=== PATIENT | male | born 1950 | race Caucasian/White ===

== ENCOUNTER 2016-06-25 19:32 | Inpatient (IN) | payer OTHER ==
[~2016-06-25] VITALS: Ht 170.2 cm; Wt 79.0 kg
[~2016-06-25 19:32] MED LIST: BISAC-EVAC10 MG PR; CHOLESTYRAMINE P4 GM PO; CLONIDINE HCL0.1 MG PO; DUONEB 2.5-0.5 M3 ML AEROSOL; ESKALITH300 M1 PO; FENOFIBRATE200 M1 PO; FLORA-Q CAPSUL1 EACH PO; HALDOL DEC100 MG/1 M IM; HALDOL DECON50 MG/ML IM; HALDOL5 MG IM; HALDOL5 MG PO; K-DUR20 MEQ PO; LISINOPRIL10 MG PO; LISINOPRIL20 MG PO; LO-DOSE ASPIRIN81 M1 PO; LOPERAMIDE2 MG PO; METOPROLOL SUC100 MG PO; ONDANSETRON4 MG/2 ML IV; PANTOPRAZOLE SO40 MG PO; SEROQUEL100 MG PO; SIMVASTATIN40 MG PO; TAMSULOSIN HCL0.4 MG PO; TYLENOL REGULA325 MG PO; ZESTRIL,PRINIVI10 M1 PO; Zestril,Prinivil PO
[2016-06-25 20:10] LABS: HEMATOCRIT 38.9 % (38.0-50.0); MCH 28.7 PG (29.0-34.0); MCHC 33.2 G/DL (30.0-36.0); MCV 86.6 FL (86-99); MEAN PLAT.VOLUME 9.5 uM^3 (9.0-12.4); PLATELET COUNT 398 K/uL (156-360); RBC DIS.WIDTH-SD 43.1 % (39-53); RED BLOOD COUNT 4.49 M/uL (4.00-5.50)
[2016-06-25 20:20] LABS: CHLORIDE 105 mEq/L (99-109); POTASSIUM 3.8 mEq/L (3.7-5.4); SODIUM 139 mEq/L (136-147)
[2016-06-25 20:22] LABS: GLUCOSE 102 mg/dL (70-99)
[2016-06-25 20:23] LABS: ANION GAP 9 MEQ/L (2-14)
[2016-06-25 20:26] LABS: GFR ESTIMATE (CALCULATED) > 59 mL/min/
[2016-06-25 20:27] LABS: UREA NITROGEN (BUN) 13 mg/dL (9-23)
[2016-06-25 22:12] LABS: TOTAL BILIRUBIN 0.6 mg/dL (0.0-1.0)
[2016-06-25 22:13] LABS: ALKALINE PHOSPHATASE 88 IU/L (3-129); SERUM ETHYL ALCOHOL < 10 mg/dL
[2016-06-25 22:15] LABS: DIRECT BILIRUBIN 0.3 mg/dL (0.0-0.3)
[2016-06-25 22:33] LABS: TROP-I INTERPRETATION NEGATIVE; TROPONIN-I 0.04 ng/mL (0.0-0.30)
[2016-06-25 22:55] LABS: TROP-I INTERPRETATION NEGATIVE; TROPONIN-I 0.02 ng/mL (0.0-0.30)
[2016-06-26 00:18] LABS: ADD MIUA? YES; BILIRUBIN SMALL; BLOOD LARGE; COLOR DK YELLOW ((YELLOW)); GLUCOSE (STRIP) NEGATIVE; KETONES TRACE; LEUKOCYTES MODERATE; NITRITE NEGATIVE; PROTEIN (STRIP) 30; SPECIFIC GRAVITY 1.026 (1.000-1.030); UROBILINOGEN 0.2 MG/DL (0.2-1.0)
[2016-06-26 00:35] LABS: WHITE BLOOD CELLS 15-20 /HPF (0-5)
[2016-06-26 00:36] LABS: BACTERIA 1+; CASTS NONE SEEN /LPF; CRYSTALS NONE SEEN; EPITHELIAL CELLS 1+; MUCUS NONE SEEN; RED BLOOD CELLS 20-30 /HPF (0-5); UCUL ADDED? NO
[2016-06-26 00:37] LABS: AMPHETAMINE NEGATIVE (500 ng/mL); BARBITURATES NEGATIVE (200 ng/mL); BENZODIAZEPINES NEGATIVE (150 ng/mL); COCAINE NEGATIVE (150 ng/mL); INTERNAL CONTROLS VALID? YES; METHADONE NEGATIVE (200 ng/mL); METHAMPHETAMINE NEGATIVE (500 ng/mL); OPIATES (MORPHINE) NEGATIVE (100 ng/mL); OXYCODONE NEGATIVE (100 ng/mL); PHENCYCLIDINE NEGATIVE (25 ng/mL); PROPOXYPHENE NEGATIVE (300 ng/mL); THC CANNABINOIDS NEGATIVE (50 ng/mL); TRICYCLIC ANTIDEPRESSANTS NEGATIVE (300 ng/mL)
[2016-06-26 03:42] VITALS: BP 159/97
[2016-06-26 07:45] VITALS: BP 162/98
[2016-06-26 11:21] VITALS: BP 130/82
[2016-06-26 16:10] VITALS: BP 138/79
[2016-06-27 00:02] VITALS: BP 143/85
[2016-06-27 03:52] VITALS: BP 151/73
[2016-06-27 06:45] LABS: EOSINOPHIL (%) 5.5 % (0-5); EOSINOPHIL COUNT 0.4 K/uL (0-0.3); HEMATOCRIT 38.9 % (38.0-50.0); IMMATURE GRANULOCYTE (%) 0.1 % (0.0-0.7); MCHC 32.9 G/DL (30.0-36.0); MCV 88.2 FL (86-99); MEAN PLAT.VOLUME 10.1 uM^3 (9.0-12.4); MONOCYTE COUNT 0.7 K/uL (0-0.8); NEUTROPHIL (%) 59.5 % (45-76); NEUTROPHIL COUNT 4.7 K/uL (1.8-6.4); PLATELET COUNT 337 K/uL (156-360); RBC DIS.WIDTH-CV 13.9 % (11.8-14.6); RED BLOOD COUNT 4.41 M/uL (4.00-5.50); WHITE BLOOD COUNT 7.9 K/uL (4.1-10.2)
[2016-06-27 07:11] LABS: ANION GAP 9 MEQ/L (2-14); CHLORIDE 104 MEQ/L (99-109); GFR ESTIMATE (CALCULATED) > 59 mL/min/; GLUCOSE 94 mg/dL (70-99); POTASSIUM 3.9 MEQ/L (3.7-5.4); SAMPLE HEMOLYSIS CHECK 0; SAMPLE ICTERIC CHECK 0; SAMPLE LIPEMIA CHECK 0; SODIUM 140 MEQ/L (136-147); UREA NITROGEN (BUN) 13 mg/dL (9-23)
[2016-06-27 11:13] VITALS: BP 103/64
[2016-06-27 15:53] VITALS: BP 113/70
[2016-06-27 20:09] VITALS: BP 139/84
[2016-06-28 07:11] LABS: EOSINOPHIL (%) 5.7 % (0-5); EOSINOPHIL COUNT 0.4 K/uL (0-0.3); HEMATOCRIT 35.3 % (38.0-50.0); IMMATURE GRANULOCYTE (%) 0.1 % (0.0-0.7); LYMPHOCYTE COUNT 2.1 K/uL (1.0-2.8); MCH 28.5 PG (29.0-34.0); MCHC 32.6 G/DL (30.0-36.0); MCV 87.4 FL (86-99); MEAN PLAT.VOLUME 9.8 uM^3 (9.0-12.4); MONOCYTE (%) 8.4 % (3-12); MONOCYTE COUNT 0.6 K/uL (0-0.8); NEUTROPHIL (%) 57.6 % (45-76); NEUTROPHIL COUNT 4.3 K/uL (1.8-6.4); PLATELET COUNT 326 K/uL (156-360); RBC DIS.WIDTH-SD 44.7 % (39-53); RED BLOOD COUNT 4.04 M/uL (4.00-5.50); WHITE BLOOD COUNT 7.4 K/uL (4.1-10.2)
[2016-06-28 07:32] LABS: ANION GAP 8 MEQ/L (2-14); CHLORIDE 106 MEQ/L (99-109); GFR ESTIMATE (CALCULATED) > 59 mL/min/; GLUCOSE 91 mg/dL (70-99); POTASSIUM 3.8 MEQ/L (3.7-5.4); SAMPLE HEMOLYSIS CHECK 1; SAMPLE ICTERIC CHECK 0; SAMPLE LIPEMIA CHECK 0; SODIUM 139 MEQ/L (136-147); UREA NITROGEN (BUN) 12 mg/dL (9-23)
[2016-06-28 07:49] VITALS: BP 167/97
[2016-06-28] MEDS ORDERED: HALOPERIDO100 MG/1 M IM (12:41)
[2016-06-28 16:02] VITALS: BP 130/73
[2016-06-28 22:55] VITALS: BP 142/82
[2016-06-29 08:24] VITALS: BP 145/80
[2016-06-29 09:29] LABS: ANION GAP 9 MEQ/L (2-14); CHLORIDE 107 MEQ/L (99-109); GFR ESTIMATE (CALCULATED) > 59 mL/min/; GLUCOSE 93 mg/dL (70-99); POTASSIUM 3.6 MEQ/L (3.7-5.4); SAMPLE HEMOLYSIS CHECK 0; SAMPLE ICTERIC CHECK 0; SAMPLE LIPEMIA CHECK 0; SODIUM 141 MEQ/L (136-147); UREA NITROGEN (BUN) 9 mg/dL (9-23)
[2016-06-29 09:42] LABS: EOSINOPHIL (%) 6.1 % (0-5); EOSINOPHIL COUNT 0.4 K/uL (0-0.3); HEMATOCRIT 38.9 % (38.0-50.0); IMMATURE GRANULOCYTE (%) 1.3 % (0.0-0.7); IMMATURE GRANULOCYTE COUNT 0.1 K/uL; LYMPHOCYTE COUNT 1.5 K/uL (1.0-2.8); MCH 28.6 PG (29.0-34.0); MCHC 33.2 G/DL (30.0-36.0); MCV 86.3 FL (86-99); MONOCYTE (%) 7.9 % (3-12); MONOCYTE COUNT 0.5 K/uL (0-0.8); NEUTROPHIL COUNT 4.3 K/uL (1.8-6.4); RBC DIS.WIDTH-CV 14.1 % (11.8-14.6); RBC DIS.WIDTH-SD 44.2 % (39-53); RED BLOOD COUNT 4.51 M/uL (4.00-5.50); WHITE BLOOD COUNT 6.9 K/uL (4.1-10.2)
[2016-06-29 09:44] LABS: MEAN PLAT.VOLUME 10.5 uM^3 (9.0-12.4)
[2016-06-29 12:17] LABS: USER ID TLW
[2016-06-29 15:45] VITALS: BP 126/72
[2016-06-30 06:55] LABS: ANION GAP 10 MEQ/L (2-14); CHLORIDE 106 MEQ/L (99-109); GFR ESTIMATE (CALCULATED) > 59 mL/min/; GLUCOSE 101 mg/dL (70-99); POTASSIUM 3.8 MEQ/L (3.7-5.4); SAMPLE HEMOLYSIS CHECK 0; SAMPLE ICTERIC CHECK 0; SAMPLE LIPEMIA CHECK 0; SODIUM 140 MEQ/L (136-147); UREA NITROGEN (BUN) 11 mg/dL (9-23)
[2016-06-30 08:01] VITALS: BP 145/110
[2016-06-30 15:01] VITALS: BP 171/97
[2016-06-30 23:15] VITALS: BP 179/88
[2016-07-01 08:31] VITALS: BP 153/88
[2016-07-01 16:35] VITALS: BP 171/95
[2016-07-01 22:51] VITALS: BP 146/79
[2016-07-02 09:00] VITALS: BP 143/93
[2016-07-02 16:55] VITALS: BP 163/109
[2016-07-02 21:49] VITALS: BP 138/80
[2016-07-03 08:00] VITALS: BP 140/60
[2016-07-03 08:26] LABS: ANION GAP 8 MEQ/L (2-14); CHLORIDE 104 MEQ/L (99-109); GFR ESTIMATE (CALCULATED) > 59 mL/min/; GLUCOSE 85 mg/dL (70-99); POTASSIUM 3.4 MEQ/L (3.7-5.4); SAMPLE HEMOLYSIS CHECK 0; SAMPLE ICTERIC CHECK 0; SAMPLE LIPEMIA CHECK 0; SODIUM 139 MEQ/L (136-147); UREA NITROGEN (BUN) 16 mg/dL (9-23)
[2016-07-03 15:49] VITALS: BP 130/75
[2016-07-03 22:56] VITALS: BP 151/74
[2016-07-04 07:54] VITALS: BP 155/96
[2016-07-04 16:02] VITALS: BP 130/79
[2016-07-04] MEDS ORDERED: LOVENOX40 MG/0.4 SC (19:53)
[2016-07-04] MEDS ORDERED: AMLODIPINE BESYL5 MG PO (19:53)
[2016-07-04] MEDS ORDERED: METOPROLOL SUC100 MG PO (19:53)
[2016-07-04] MEDS ORDERED: K-DUR20 MEQ PO (19:54)
[2016-07-04] MEDS ORDERED: CYANOCOBAL1000 MCG/2 IM (19:54)
[2016-07-04] MEDS ORDERED: ASPIR-LOW81 MG PO (19:54)
[2016-07-04] MEDS ORDERED: LISINOPRIL20 MG PO (19:54)
[2016-07-04] MEDS ORDERED: SIMVASTATIN20 MG PO (19:58)
[2016-07-05 01:06] VITALS: BP 139/62
[2016-07-05 08:00] VITALS: BP 129/93
[2016-07-05 17:09] VITALS: BP 155/86
[2016-07-05 23:54] VITALS: BP 140/88
[2016-07-06 08:56] VITALS: BP 173/84
[2016-07-06] MEDS ORDERED: AMLODIPINE BESYL5 MG PO (17:05)
== END 2016-07-06 17:20 | disposition home or self-care (01) | DRG 690 ==
LOC: EME 19:32 → 5EAST 06-26 02:04 → EDOF 06-26 02:04 → 5EAST 06-26 03:23
PROVIDERS: Emergency Medicine; Family Medicine; Family Medicine Sports Medicine; Physician Assistant
DX: N39.0 Urinary tract infection, site not specified (principal); R41.82 Altered mental status, unspecified; I10 Essential (primary) hypertension; R53.1 Weakness; F25.9 Schizoaffective disorder, unspecified; E78.5 Hyperlipidemia, unspecified; F01.50 Vascular dementia, unspecified severity, without behavioral disturbance, psychotic disturbance, mood disturbance, and anxiety; Z88.0 Allergy status to penicillin; Z87.891 Personal history of nicotine dependence; Z99.3 Dependence on wheelchair; Z86.73 Personal history of transient ischemic attack (TIA), and cerebral infarction without residual deficits; E53.8 Deficiency of other specified B group vitamins
CPT/HCPCS: 70450; 70551; 71020; 80048; 80076; 81003; 82140; 82607; 82746; 84443; 84484; 85025; 85027; 93005; 97530 GO; 97530 GP; 99281; 99285; G0480; J0696; J1650; J3420; J7030; J7050

== ENCOUNTER 2016-09-28 18:29 | Emergency (ER) | payer OTHER ==
[~2016-09-28] VITALS: Ht 170.2 cm; Wt 93.1 kg
[~2016-09-28 18:29] MED LIST changes: +AMLODIPINE BESYL5 MG PO; +ASPIR-LOW81 MG PO; +CYANOCOBAL1000 MCG/2 IM; +HALOPERIDO100 MG/1 M IM; +LOVENOX40 MG/0.4 SC; +SIMVASTATIN20 MG PO
[2016-09-28 19:54] LABS: HEMATOCRIT 40.1 % (38.0-50.0); MCH 28.4 PG (29.0-34.0); MCHC 31.9 G/DL (30.0-36.0); MCV 89.1 FL (86-99); MEAN PLAT.VOLUME 8.6 uM^3 (9.0-12.4); PLATELET COUNT 424 K/uL (156-360); RBC DIS.WIDTH-CV 13.4 % (11.8-14.6); WHITE BLOOD COUNT 9.5 K/uL (4.1-10.2)
[2016-09-28 20:06] LABS: CHLORIDE 105 mEq/L (99-109); SODIUM 140 mEq/L (136-147)
[2016-09-28 20:08] LABS: GLUCOSE 100 mg/dL (70-99)
[2016-09-28 20:09] LABS: ANION GAP 10 MEQ/L (2-14)
[2016-09-28 20:12] LABS: GFR ESTIMATE (CALCULATED) > 59 mL/min/
[2016-09-28 20:13] LABS: UREA NITROGEN (BUN) 16 mg/dL (9-23)
[2016-09-28 20:33] VITALS: BP 142/84
== END 2016-09-28 20:35 | disposition home or self-care (01) ==
LOC: EME 18:29
PROVIDERS: Nurse Practitioner Family
DX: M79.89 Other specified soft tissue disorders (principal); M79.671 Pain in right foot; J44.9 Chronic obstructive pulmonary disease, unspecified; F17.200 Nicotine dependence, unspecified, uncomplicated
CPT/HCPCS: 80048; 85027; 93971; 99281; 99283

== ENCOUNTER 2016-11-02 23:50 | Inpatient (IN) | payer OTHER ==
[~2016-11-02] VITALS: Ht 170.2 cm; Wt 83.3 kg
[2016-11-03] VITALS (20 sets, daily range): BP systolic 101–135; BP diastolic 53–73
[2016-11-03 00:26] LABS: BASE EXCESS -1.2 mEq/L (-3 to +3); BICARBONATE 23.6 mEq/L (22-26); CARBOXY HGB 2.4 % (0-5); COMMENTS - BLOOD GASES A+C+; METHEMOGLOBIN 1.1 % (0-1.5); PCO2 39 mm Hg (35-45); PO2 106 mm Hg (80-100); SITE LR; pH 7.39 (7.35-7.45)
[2016-11-03 00:27] LABS: CONTINUOUS POS AIRWAY PRESSURE 10 cm H2O; DEVICE 840 MASK VENT; MODE SPONT; PRES. SUPPORT 14 CM/H2O; TOTAL RESP RATE 43 resp/min
[2016-11-03 00:37] LABS: HEMATOCRIT 37.3 % (38.0-50.0); MCH 27.8 PG (29.0-34.0); MCHC 31.1 G/DL (30.0-36.0); MCV 89.4 FL (86-99); MEAN PLAT.VOLUME 9.2 uM^3 (9.0-12.4); PLATELET COUNT 383 K/uL (156-360); RBC DIS.WIDTH-CV 13.8 % (11.8-14.6); RED BLOOD COUNT 4.17 M/uL (4.00-5.50)
[2016-11-03 00:57] LABS: CHLORIDE 106 mEq/L (99-109); POTASSIUM 3.7 mEq/L (3.7-5.4); SODIUM 137 mEq/L (136-147)
[2016-11-03 00:59] LABS: GLUCOSE 179 mg/dL (70-99)
[2016-11-03 01:00] LABS: ANION GAP 10 MEQ/L (2-14)
[2016-11-03 01:01] LABS: TOTAL BILIRUBIN 0.5 mg/dL (0.0-1.0)
[2016-11-03 01:02] LABS: ALKALINE PHOSPHATASE 86 IU/L (3-129)
[2016-11-03 01:03] LABS: GFR ESTIMATE (CALCULATED) > 59 mL/min/; TROP-I INTERPRETATION INDETERMINATE; TROPONIN-I 0.36 ng/mL (0.0-0.30)
[2016-11-03 01:04] LABS: UREA NITROGEN (BUN) 21 mg/dL (9-23)
[2016-11-03 01:06] LABS: LIPASE 17 U/L (1.0-51.0)
[2016-11-03] MEDS ORDERED: AMLODIPINE BESYL5 MG PO (01:32)
[2016-11-03] MEDS ORDERED: ATORVASTATIN CA10 MG PO (01:33)
[2016-11-03] MEDS ORDERED: LO-DOSE ASPIRIN81 M1 PO (01:33)
[2016-11-03] MEDS ORDERED: CYANOCOBAL1000 MCG/2 IM (01:35)
[2016-11-03] MEDS ORDERED: STOOL SOFTENER100 M1 PO (01:36)
[2016-11-03] MEDS ORDERED: TAMSULOSIN HCL0.4 MG PO (01:37)
[2016-11-03] MEDS ORDERED: VITAMIN D31000 UNIT PO (01:37)
[2016-11-03] MEDS ORDERED: LISINOPRIL20 MG PO (01:38)
[2016-11-03] MEDS ORDERED: K-DUR20 MEQ PO (01:39)
[2016-11-03] MEDS ORDERED: TYLENOL REGULA325 MG PO (01:40)
[2016-11-03 04:09] LABS: ADD MIUA? YES; BILIRUBIN NEGATIVE; BLOOD MODERATE; COLOR YELLOW ((YELLOW)); GLUCOSE (STRIP) NEGATIVE; KETONES NEGATIVE; LEUKOCYTES TRACE; NITRITE NEGATIVE; PROTEIN (STRIP) NEGATIVE; SPECIFIC GRAVITY 1.021 (1.000-1.030); UROBILINOGEN 0.2 MG/DL (0.2-1.0)
[2016-11-03 04:18] LABS: BACTERIA NONE SEEN /HPF; EPITHELIAL CELLS RARE /HPF; HYALINE CASTS 0-5 /LPF; MUCUS TRACE /LPF; RED BLOOD CELLS 0-5 /HPF (0-5); UCUL ADDED? NO; WHITE BLOOD CELLS 0-5 /HPF (0-5)
[2016-11-03 05:27] LABS: METH RESISTANT S AUREUS PCR POSITIVE (NEGATIVE)
[2016-11-03 05:32] LABS: PROBE CHECK PASS
[2016-11-04] VITALS (10 sets, daily range): BP systolic 99–203; BP diastolic 66–126
[2016-11-04 02:05] LABS: CREATINE KINASE 773 IU/L (1-294)
[2016-11-04 02:45] LABS: BASE EXCESS -6.1 mEq/L (-3 to +3); CARBOXY HGB 2.4 % (0-5); METHEMOGLOBIN 1.8 % (0-1.5); PO2 124 mm Hg (80-100)
[2016-11-04 02:46] LABS: BICARBONATE 28.4 mEq/L (22-26); COMMENTS - BLOOD GASES C+; DEVICE VENT; FI02 100 %; MECHANICAL RATE 34 resp/min; MODE A/C VC+; PCO2 129 mm Hg (35-45); SITE LR ALINE; pH 6.95 (7.35-7.45)
[2016-11-04 02:47] LABS: PEEP 20 CM/H20; TIDAL VOLUME 260 ML; TOTAL RESP RATE 34 resp/min
[2016-11-04 03:01] LABS: TRIGLYCERIDES 106 MG/DL (Normal: <150)
[2016-11-04 05:33] LABS: BASE EXCESS -3.3 mEq/L (-3 to +3); CARBOXY HGB 2.6 % (0-5); COMMENTS - BLOOD GASES C+; DEVICE VENT; FI02 60 %; INSPIRATION TIME 0.88 seconds; MECHANICAL RATE 34 resp/min; MODE A/C VC+; PCO2 61 mm Hg (35-45); PEEP 16 CM/H20; PO2 56 mm Hg (80-100); SITE LR ALINE; TIDAL VOLUME 350 ML; TOTAL RESP RATE 34 resp/min; pH 7.22 (7.35-7.45)
[2016-11-04 06:25] LABS: HEMATOCRIT 35.3 % (38.0-50.0); MCH 29.1 PG (29.0-34.0); MCHC 30.9 G/DL (30.0-36.0); MEAN PLAT.VOLUME 9.5 uM^3 (9.0-12.4); PLATELET COUNT 495 K/uL (156-360); RBC DIS.WIDTH-CV 14.3 % (11.8-14.6); RBC DIS.WIDTH-SD 49.5 % (39-53); RED BLOOD COUNT 3.74 M/uL (4.00-5.50)
[2016-11-04 06:26] LABS: MCV 94.4 FL (86-99); WHITE BLOOD COUNT 25.3 K/uL (4.1-10.2)
[2016-11-04 06:33] LABS: ANION GAP 6 MEQ/L (2-14); CHLORIDE 104 MEQ/L (99-109); GFR ESTIMATE (CALCULATED) > 59 mL/min/; GLUCOSE 151 mg/dL (70-99); POTASSIUM 4.2 MEQ/L (3.7-5.4); SAMPLE HEMOLYSIS CHECK 0; SAMPLE ICTERIC CHECK 0; SAMPLE LIPEMIA CHECK 0; SODIUM 137 MEQ/L (136-147); UREA NITROGEN (BUN) 23 mg/dL (9-23)
[2016-11-04 09:28] LABS: BASE EXCESS 0.5 mEq/L (-3 to +3); CARBOXY HGB 2.3 % (0-5); METHEMOGLOBIN 1.5 % (0-1.5)
[2016-11-04 09:29] LABS: COMMENTS - BLOOD GASES C+; DEVICE VENT; FI02 50 %; INSPIRATION TIME 0.88 seconds; MECHANICAL RATE 34 resp/min; MODE AC VC+; PCO2 87 mm Hg (35-45); PEEP 16 CM/H20; PO2 95 mm Hg (80-100); SITE KR ALINE; TIDAL VOLUME 350 ML; TOTAL RESP RATE 36 resp/min; pH 7.16 (7.35-7.45)
[2016-11-04 09:41] LABS: MAGNESIUM 1.9 mg/dl (1.3-2.7)
[2016-11-04 11:34] LABS: BASE EXCESS 3.5 mEq/L (-3 to +3); BICARBONATE 29.1 mEq/L (22-26); CARBOXY HGB 2.1 % (0-5); COMMENTS - BLOOD GASES C+; DEVICE 840 VENTILATOR; FI02 50 %; INSPIRATION TIME 0.8 seconds; MECHANICAL RATE 22 resp/min; METHEMOGLOBIN 1.7 % (0-1.5); MODE AC/VC+; PCO2 48 mm Hg (35-45); PEEP 10 CM/H20; PO2 106 mm Hg (80-100); SITE LT RADIAL ALINE; TOTAL RESP RATE 28 resp/min; pH 7.39 (7.35-7.45)
[2016-11-04 11:37] LABS: TIDAL VOLUME 500 ML
[2016-11-04 12:47] LABS: POINT-OF-CARE METER ID UU14174217; POINT-OF-CARE USER ID 612031313
[2016-11-04 19:02] LABS: POINT-OF-CARE METER ID UU14174217; POINT-OF-CARE USER ID 612031313
[2016-11-04 23:17] LABS: POINT-OF-CARE METER ID UU14174217
[2016-11-04 23:27] LABS: BASE EXCESS 4.2 mEq/L (-3 to +3); BICARBONATE 29.2 mEq/L (22-26); CARBOXY HGB 1.6 % (0-5); METHEMOGLOBIN 1.7 % (0-1.5); PCO2 45 mm Hg (35-45); PO2 312 mm Hg (80-100); pH 7.42 (7.35-7.45)
[2016-11-04 23:28] LABS: COMMENTS - BLOOD GASES C+; DEVICE VENT; FI02 100 %; MODE ACVC+; PEEP 5 CM/H20; SITE A-LINE; TIDAL VOLUME 500 ML; TOTAL RESP RATE 22 resp/min
[2016-11-04 23:58] LABS: CHLORIDE 108 mEq/L (99-109); POTASSIUM 3.8 mEq/L (3.7-5.4); SODIUM 138 mEq/L (136-147)
[2016-11-04 23:59] LABS: MAGNESIUM 1.6 mg/dL (1.3-2.7)
[2016-11-05] VITALS (8 sets, daily range): BP systolic 94–118; BP diastolic 57–72
[2016-11-05] LABS: TROP-I INTERPRETATION POSITIVE; TROPONIN-I 14.35 ng/mL (0.0-0.30)
[2016-11-05 00:02] LABS: ANION GAP 8 MEQ/L (2-14); GLUCOSE 93 mg/dL (70-99)
[2016-11-05 00:04] LABS: GFR ESTIMATE (CALCULATED) > 59 mL/min/
[2016-11-05 00:05] LABS: UREA NITROGEN (BUN) 19 mg/dL (9-23)
[2016-11-05 00:26] LABS: CREATINE KINASE 607 IU/L (1-294)
[2016-11-05 01:00] LABS: INTER. NORMALIZED RATIO 1.2; PROTHROMBIN TIME 12.2 (9.2-11.2); PTT 33.6 (25-32)
[2016-11-05 05:58] LABS: POINT-OF-CARE METER ID UU14162636
[2016-11-05 06:22] LABS: BASE EXCESS 1.7 mEq/L (-3 to +3); BICARBONATE 27.2 mEq/L (22-26); CARBOXY HGB 1.2 % (0-5); DEVICE PB840; FI02 100 %; MECHANICAL RATE 22 resp/min; METHEMOGLOBIN 1.6 % (0-1.5); MODE ACVC+; PCO2 46 mm Hg (35-45); PEEP 5 CM/H20; PO2 288 mm Hg (80-100); TIDAL VOLUME 500 ML; TOTAL RESP RATE 22 resp/min; pH 7.38 (7.35-7.45)
[2016-11-05 06:23] LABS: COMMENTS - BLOOD GASES C+; SITE A-LINE
[2016-11-05 09:03] LABS: HEMATOCRIT 27.5 % (38.0-50.0); MCH 29.5 PG (29.0-34.0); MCHC 31.3 G/DL (30.0-36.0); MCV 94.2 FL (86-99); RBC DIS.WIDTH-CV 14.5 % (11.8-14.6); RBC DIS.WIDTH-SD 49.9 % (39-53)
[2016-11-05 09:04] LABS: RED BLOOD COUNT 2.92 M/uL (4.00-5.50); WHITE BLOOD COUNT 9.2 K/uL (4.1-10.2)
[2016-11-05 09:14] LABS: ANION GAP 7 MEQ/L (2-14); CHLORIDE 108 MEQ/L (99-109); MAGNESIUM 1.8 mg/dl (1.3-2.7); POTASSIUM 3.9 MEQ/L (3.7-5.4); SAMPLE HEMOLYSIS CHECK 0; SAMPLE ICTERIC CHECK 0; SAMPLE LIPEMIA CHECK 0; SODIUM 141 MEQ/L (136-147)
[2016-11-05 09:38] LABS: MEAN PLAT.VOLUME 9.5 uM^3 (9.0-12.4); PLAT.SUFFICIENCY ADEQUATE
[2016-11-05 09:39] LABS: GFR ESTIMATE (CALCULATED) > 59 mL/min/; GLUCOSE 93 mg/dL (70-99); UREA NITROGEN (BUN) 16 mg/dL (9-23)
[2016-11-05 09:41] LABS: PLATELET COUNT 238 K/uL (156-360)
[2016-11-05 12:50] LABS: TROP-I INTERPRETATION POSITIVE; TROPONIN-I 15.74 ng/mL (0.0-0.30)
[2016-11-05 14:29] LABS: POINT-OF-CARE METER ID UU14162636
[2016-11-05 16:52] LABS: TROP-I INTERPRETATION POSITIVE; TROPONIN-I 31.92 ng/mL (0.0-0.30)
[2016-11-05 17:37] LABS: POINT-OF-CARE METER ID UU14162636; POINT-OF-CARE USER ID 612031313
[2016-11-05 19:55] LABS: EOSINOPHIL (%) 2.4 % (0-5); EOSINOPHIL COUNT 0.2 K/uL (0-0.3); HEMATOCRIT 28.2 % (38.0-50.0); IMMATURE GRANULOCYTE (%) 0.5 % (0.0-0.7); IMMATURE GRANULOCYTE COUNT 0.1 K/uL; INSTRUMENT ABS NEUTROPHIL CT 7.5 K/uL; LYMPHOCYTE COUNT 1.1 K/uL (1.0-2.8); MCH 28.6 PG (29.0-34.0); MCHC 30.5 G/DL (30.0-36.0); MCV 93.7 FL (86-99); MEAN PLAT.VOLUME 9.6 uM^3 (9.0-12.4); MONOCYTE COUNT 0.9 K/uL (0-0.8); NEUTROPHIL (%) 76.4 % (45-76); NEUTROPHIL COUNT 7.5 K/uL (1.8-6.4); PLATELET COUNT 279 K/uL (156-360); RBC DIS.WIDTH-CV 14.6 % (11.8-14.6); RBC DIS.WIDTH-SD 49.5 % (39-53); RED BLOOD COUNT 3.01 M/uL (4.00-5.50); WHITE BLOOD COUNT 9.8 K/uL (4.1-10.2)
[2016-11-06] VITALS (10 sets, daily range): BP systolic 95–137; BP diastolic 57–77
[2016-11-06 00:27] LABS: POINT-OF-CARE METER ID UU13113731
[2016-11-06 01:03] LABS: INTER. NORMALIZED RATIO 1.1; PROTHROMBIN TIME 11.1 (9.2-11.2)
[2016-11-06 01:20] LABS: TROP-I INTERPRETATION POSITIVE; TROPONIN-I 25.87 ng/mL (0.0-0.30)
[2016-11-06 06:56] LABS: TROP-I INTERPRETATION POSITIVE; TROPONIN-I 21.51 ng/mL (0.0-0.30)
[2016-11-06 07:16] LABS: EOSINOPHIL (%) 3.7 % (0-5); EOSINOPHIL COUNT 0.3 K/uL (0-0.3); HEMATOCRIT 27.6 % (38.0-50.0); IMMATURE GRANULOCYTE (%) 0.4 % (0.0-0.7); INSTRUMENT ABS NEUTROPHIL CT 5.7 K/uL; LYMPHOCYTE COUNT 1.2 K/uL (1.0-2.8); MCHC 30.1 G/DL (30.0-36.0); MCV 96.5 FL (86-99); MEAN PLAT.VOLUME 9.7 uM^3 (9.0-12.4); MONOCYTE COUNT 0.7 K/uL (0-0.8); NEUTROPHIL (%) 71.7 % (45-76); NEUTROPHIL COUNT 5.7 K/uL (1.8-6.4); PLATELET COUNT 281 K/uL (156-360); RBC DIS.WIDTH-CV 14.6 % (11.8-14.6); RBC DIS.WIDTH-SD 51.9 % (39-53); RED BLOOD COUNT 2.86 M/uL (4.00-5.50); WHITE BLOOD COUNT 7.9 K/uL (4.1-10.2)
[2016-11-06 07:57] LABS: ANION GAP 7 MEQ/L (2-14); CHLORIDE 107 MEQ/L (99-109); GFR ESTIMATE (CALCULATED) > 59 mL/min/; GLUCOSE 78 mg/dL (70-99); POTASSIUM 4.2 MEQ/L (3.7-5.4); SAMPLE HEMOLYSIS CHECK 0; SAMPLE ICTERIC CHECK 0; SAMPLE LIPEMIA CHECK 0; SODIUM 141 MEQ/L (136-147); UREA NITROGEN (BUN) 14 mg/dL (9-23)
[2016-11-06 08:00] LABS: MAGNESIUM 2.1 mg/dl (1.3-2.7)
[2016-11-06 12:55] LABS: TROP-I INTERPRETATION POSITIVE; TROPONIN-I 19.53 ng/mL (0.0-0.30)
[2016-11-06 17:03] LABS: POINT-OF-CARE METER ID UU13113731
[2016-11-06 18:01] LABS: TROP-I INTERPRETATION POSITIVE; TROPONIN-I 17.77 ng/mL (0.0-0.30)
[2016-11-07] VITALS (11 sets, daily range): BP systolic 84–160; BP diastolic 46–96
[2016-11-07 00:29] LABS: POINT-OF-CARE METER ID UU13113731; POINT-OF-CARE USER ID PHATLC
[2016-11-07 01:49] LABS: INTER. NORMALIZED RATIO 1.1
[2016-11-07 01:57] LABS: TROP-I INTERPRETATION POSITIVE; TROPONIN-I 17.81 ng/mL (0.0-0.30)
[2016-11-07 06:13] LABS: POINT-OF-CARE METER ID UU13113731; POINT-OF-CARE USER ID PHATLC
[2016-11-07 07:01] LABS: TROP-I INTERPRETATION POSITIVE; TROPONIN-I 15.91 ng/mL (0.0-0.30)
[2016-11-07 07:18] LABS: HEMATOCRIT 27.8 % (38.0-50.0); MCH 28.7 PG (29.0-34.0); MCHC 30.6 G/DL (30.0-36.0); MCV 93.9 FL (86-99); MEAN PLAT.VOLUME 9.6 uM^3 (9.0-12.4); PLATELET COUNT 293 K/uL (156-360); RBC DIS.WIDTH-CV 14.6 % (11.8-14.6); RBC DIS.WIDTH-SD 50.6 % (39-53); RED BLOOD COUNT 2.96 M/uL (4.00-5.50)
[2016-11-07 07:23] LABS: WHITE BLOOD COUNT 10.3 K/uL (4.1-10.2)
[2016-11-07 10:48] LABS: CHLORIDE 106 mEq/L (99-109); POTASSIUM 3.7 mEq/L (3.7-5.4); SODIUM 141 mEq/L (136-147)
[2016-11-07 10:51] LABS: ANION GAP 10 MEQ/L (2-14); GLUCOSE 108 mg/dL (70-99)
[2016-11-07 10:54] LABS: GFR ESTIMATE (CALCULATED) > 59 mL/min/; UREA NITROGEN (BUN) 13 mg/dL (9-23)
[2016-11-07 11:42] LABS: POINT-OF-CARE METER ID UU14174217
[2016-11-07 13:15] LABS: TROP-I INTERPRETATION POSITIVE; TROPONIN-I 13.39 ng/mL (0.0-0.30)
[2016-11-07 16:45] LABS: POINT-OF-CARE METER ID UU14174217
[2016-11-07 18:50] LABS: CHLORIDE 105 mEq/L (99-109); POTASSIUM 3.9 mEq/L (3.7-5.4); SODIUM 144 mEq/L (136-147)
[2016-11-07 18:51] LABS: GLUCOSE 103 mg/dL (70-99)
[2016-11-07 18:53] LABS: ANION GAP 11 MEQ/L (2-14)
[2016-11-07 18:55] LABS: GFR ESTIMATE (CALCULATED) > 59 mL/min/
[2016-11-07 18:56] LABS: UREA NITROGEN (BUN) 13 mg/dL (9-23)
[2016-11-07 19:01] LABS: TROP-I INTERPRETATION POSITIVE; TROPONIN-I 14.94 ng/mL (0.0-0.30)
[2016-11-07 22:05] LABS: MAGNESIUM 1.8 mg/dL (1.3-2.7)
[2016-11-08] VITALS (12 sets, daily range): BP systolic 103–155; BP diastolic 60–93
[2016-11-08 00:17] LABS: POINT-OF-CARE METER ID UU14162636; POINT-OF-CARE USER ID PHATLC
[2016-11-08 01:28] LABS: INTER. NORMALIZED RATIO 1.1; PROTHROMBIN TIME 11.4 (9.2-11.2)
[2016-11-08 01:32] LABS: CHLORIDE 102 mEq/L (99-109); POTASSIUM 3.5 mEq/L (3.7-5.4); SODIUM 143 mEq/L (136-147)
[2016-11-08 01:33] LABS: MAGNESIUM 1.6 mg/dL (1.3-2.7)
[2016-11-08 01:35] LABS: GLUCOSE 95 mg/dL (70-99)
[2016-11-08 01:36] LABS: ANION GAP 12 MEQ/L (2-14)
[2016-11-08 01:38] LABS: GFR ESTIMATE (CALCULATED) > 59 mL/min/
[2016-11-08 01:39] LABS: UREA NITROGEN (BUN) 11 mg/dL (9-23)
[2016-11-08 01:41] LABS: CREATINE KINASE 279 IU/L (1-294)
[2016-11-08 06:00] LABS: POINT-OF-CARE METER ID UU14162636; POINT-OF-CARE USER ID PHATLC
[2016-11-08 06:02] LABS: EOSINOPHIL (%) 2.5 % (0-5); EOSINOPHIL COUNT 0.3 K/uL (0-0.3); HEMATOCRIT 34.1 % (38.0-50.0); IMMATURE GRANULOCYTE (%) 0.4 % (0.0-0.7); INSTRUMENT ABS NEUTROPHIL CT 7.7 K/uL; LYMPHOCYTE COUNT 1.5 K/uL (1.0-2.8); MCH 28.2 PG (29.0-34.0); MCHC 31.4 G/DL (30.0-36.0); MEAN PLAT.VOLUME 9.4 uM^3 (9.0-12.4); MONOCYTE (%) 9.9 % (3-12); NEUTROPHIL COUNT 7.7 K/uL (1.8-6.4); PLATELET COUNT 352 K/uL (156-360); RBC DIS.WIDTH-CV 14.2 % (11.8-14.6); RBC DIS.WIDTH-SD 46.8 % (39-53); RED BLOOD COUNT 3.79 M/uL (4.00-5.50); WHITE BLOOD COUNT 10.5 K/uL (4.1-10.2)
[2016-11-08 06:10] LABS: CHLORIDE 99 mEq/L (99-109); POTASSIUM 3.3 mEq/L (3.7-5.4); SODIUM 143 mEq/L (136-147)
[2016-11-08 06:11] LABS: MAGNESIUM 1.6 mg/dL (1.3-2.7)
[2016-11-08 06:13] LABS: GLUCOSE 95 mg/dL (70-99)
[2016-11-08 06:14] LABS: ANION GAP 15 MEQ/L (2-14)
[2016-11-08 06:16] LABS: ALKALINE PHOSPHATASE 80 IU/L (3-129); TOTAL BILIRUBIN 0.8 mg/dL (0.0-1.0)
[2016-11-08 06:17] LABS: GFR ESTIMATE (CALCULATED) > 59 mL/min/
[2016-11-08 06:18] LABS: UREA NITROGEN (BUN) 10 mg/dL (9-23)
[2016-11-08 14:10] LABS: CHLORIDE 99 mEq/L (99-109); POTASSIUM 3.8 mEq/L (3.7-5.4); SODIUM 142 mEq/L (136-147)
[2016-11-08 14:11] LABS: MAGNESIUM 1.6 mg/dL (1.3-2.7)
[2016-11-08 14:13] LABS: GLUCOSE 99 mg/dL (70-99)
[2016-11-08 14:14] LABS: ANION GAP 14 MEQ/L (2-14)
[2016-11-08 14:16] LABS: GFR ESTIMATE (CALCULATED) > 59 mL/min/
[2016-11-08 14:17] LABS: UREA NITROGEN (BUN) 10 mg/dL (9-23)
[2016-11-08 17:03] LABS: POINT-OF-CARE METER ID UU14162636
[2016-11-08 18:42] LABS: CHLORIDE 100 mEq/L (99-109); POTASSIUM 3.7 mEq/L (3.7-5.4); SODIUM 141 mEq/L (136-147)
[2016-11-08 18:43] LABS: MAGNESIUM 1.8 mg/dL (1.3-2.7)
[2016-11-08 18:44] LABS: GLUCOSE 121 mg/dL (70-99)
[2016-11-08 18:45] LABS: ANION GAP 11 MEQ/L (2-14)
[2016-11-08 18:48] LABS: GFR ESTIMATE (CALCULATED) > 59 mL/min/
[2016-11-08 18:49] LABS: UREA NITROGEN (BUN) 14 mg/dL (9-23)
[2016-11-08 21:39] LABS: POINT-OF-CARE METER ID UU14162636
[2016-11-09] VITALS (10 sets, daily range): BP systolic 88–192; BP diastolic 48–103
[2016-11-09 00:46] LABS: CHLORIDE 102 mEq/L (99-109); POTASSIUM 3.4 mEq/L (3.7-5.4); SODIUM 142 mEq/L (136-147)
[2016-11-09 00:47] LABS: MAGNESIUM 1.7 mg/dL (1.3-2.7)
[2016-11-09 00:48] LABS: GLUCOSE 116 mg/dL (70-99)
[2016-11-09 00:49] LABS: ANION GAP 11 MEQ/L (2-14)
[2016-11-09 00:52] LABS: GFR ESTIMATE (CALCULATED) > 59 mL/min/
[2016-11-09 00:53] LABS: UREA NITROGEN (BUN) 18 mg/dL (9-23)
[2016-11-09 02:09] LABS: INTER. NORMALIZED RATIO 1.2
[2016-11-09 05:41] LABS: HEMATOCRIT 30.7 % (38.0-50.0); MCH 28.2 PG (29.0-34.0); MCHC 31.3 G/DL (30.0-36.0); MEAN PLAT.VOLUME 9.3 uM^3 (9.0-12.4); PLATELET COUNT 340 K/uL (156-360); RBC DIS.WIDTH-CV 14.2 % (11.8-14.6); RBC DIS.WIDTH-SD 46.7 % (39-53); RED BLOOD COUNT 3.41 M/uL (4.00-5.50)
[2016-11-09 05:52] LABS: CHLORIDE 102 mEq/L (99-109); POTASSIUM 3.5 mEq/L (3.7-5.4); SODIUM 143 mEq/L (136-147)
[2016-11-09 05:53] LABS: MAGNESIUM 1.7 mg/dL (1.3-2.7)
[2016-11-09 05:54] LABS: GLUCOSE 123 mg/dL (70-99)
[2016-11-09 05:55] LABS: ANION GAP 10 MEQ/L (2-14)
[2016-11-09 05:58] LABS: GFR ESTIMATE (CALCULATED) > 59 mL/min/
[2016-11-09 05:59] LABS: UREA NITROGEN (BUN) 19 mg/dL (9-23)
[2016-11-09 15:08] LABS: ANION GAP 10 MEQ/L (2-14); CHLORIDE 99 MEQ/L (99-109); GFR ESTIMATE (CALCULATED) > 59 mL/min/; GLUCOSE 103 mg/dL (70-99); POTASSIUM 3.9 MEQ/L (3.7-5.4); SAMPLE HEMOLYSIS CHECK 0; SAMPLE ICTERIC CHECK 0; SAMPLE LIPEMIA CHECK 0; SODIUM 143 MEQ/L (136-147); UREA NITROGEN (BUN) 20 mg/dL (9-23)
[2016-11-09 15:31] LABS: POINT-OF-CARE METER ID UU14174216
[2016-11-09 20:50] LABS: ANION GAP 11 MEQ/L (2-14); CHLORIDE 101 MEQ/L (99-109); GFR ESTIMATE (CALCULATED) > 59 mL/min/; GLUCOSE 112 mg/dL (70-99); MAGNESIUM 1.9 mg/dl (1.3-2.7); POTASSIUM 4.1 MEQ/L (3.7-5.4); SAMPLE HEMOLYSIS CHECK 0; SAMPLE ICTERIC CHECK 0; SAMPLE LIPEMIA CHECK 0; SODIUM 143 MEQ/L (136-147); UREA NITROGEN (BUN) 23 mg/dL (9-23)
[2016-11-09 21:21] LABS: POINT-OF-CARE METER ID UU13113781
[2016-11-10] VITALS (26 sets, daily range): BP systolic 83–159; BP diastolic 53–100
[2016-11-10 00:13] LABS: BASE EXCESS -2.9 mEq/L (-3 to +3); COMMENTS - BLOOD GASES C+A+; DEVICE AMBU BAG; FI02 100 %; METHEMOGLOBIN 1.4 % (0-1.5); O2 FLOW 15 L/MIN; PCO2 86 mm Hg (35-45); PEEP 20 CM/H20; PO2 68 mm Hg (80-100); SITE LR; TOTAL RESP RATE 18 resp/min
[2016-11-10 00:14] LABS: pH 7.12 (7.35-7.45)
[2016-11-10 00:34] LABS: BASE EXCESS -1.1 mEq/L (-3 to +3); COMMENTS - BLOOD GASES C+A+; DEVICE VENTILATOR; FI02 100 %; MECHANICAL RATE 24 resp/min; METHEMOGLOBIN 1.8 % (0-1.5); MODE AC; PCO2 70 mm Hg (35-45); SITE RR
[2016-11-10 00:35] LABS: PEEP 10 CM/H20; PO2 38 mm Hg (80-100); TIDAL VOLUME 500 ML; TOTAL RESP RATE 42 resp/min; pH 7.21 (7.35-7.45)
[2016-11-10 01:14] LABS: BASOPHIL COUNT 0.1 K/uL (0-0.1); EOSINOPHIL (%) 2.5 % (0-5); EOSINOPHIL COUNT 0.4 K/uL (0-0.3); HEMATOCRIT 37.1 % (38.0-50.0); IMMATURE GRANULOCYTE (%) 0.7 % (0.0-0.7); IMMATURE GRANULOCYTE COUNT 0.1 K/uL; INSTRUMENT ABS NEUTROPHIL CT 12.2 K/uL; LYMPHOCYTE COUNT 2.1 K/uL (1.0-2.8); MCH 27.7 PG (29.0-34.0); MCHC 29.9 G/DL (30.0-36.0); MCV 92.5 FL (86-99); MEAN PLAT.VOLUME 9.3 uM^3 (9.0-12.4); MONOCYTE (%) 6.6 % (3-12); MONOCYTE COUNT 1.1 K/uL (0-0.8); NEUTROPHIL COUNT 12.2 K/uL (1.8-6.4); PLATELET COUNT 547 K/uL (156-360); RBC DIS.WIDTH-CV 14.4 % (11.8-14.6); RBC DIS.WIDTH-SD 48.7 % (39-53); RED BLOOD COUNT 4.01 M/uL (4.00-5.50); WHITE BLOOD COUNT 15.8 K/uL (4.1-10.2)
[2016-11-10 01:18] LABS: CHLORIDE 104 mEq/L (99-109); POTASSIUM 4.3 mEq/L (3.7-5.4); SODIUM 144 mEq/L (136-147)
[2016-11-10 01:19] LABS: INTER. NORMALIZED RATIO 1.3; MAGNESIUM 1.9 mg/dL (1.3-2.7); PROTHROMBIN TIME 12.9 (9.2-11.2)
[2016-11-10 01:20] LABS: CHLORIDE 105 mEq/L (99-109); POTASSIUM 4.3 mEq/L (3.7-5.4); SODIUM 145 mEq/L (136-147)
[2016-11-10 01:22] LABS: ANION GAP 16 MEQ/L (2-14)
[2016-11-10 01:23] LABS: ANION GAP 15 MEQ/L (2-14)
[2016-11-10 01:24] LABS: GFR ESTIMATE (CALCULATED) > 59 mL/min/; TOTAL BILIRUBIN 0.7 mg/dL (0.0-1.0)
[2016-11-10 01:25] LABS: ALKALINE PHOSPHATASE 90 IU/L (3-129); UREA NITROGEN (BUN) 26 mg/dL (9-23)
[2016-11-10 01:26] LABS: GFR ESTIMATE (CALCULATED) > 59 mL/min/
[2016-11-10 01:27] LABS: UREA NITROGEN (BUN) 27 mg/dL (9-23)
[2016-11-10 01:33] LABS: GLUCOSE 224 mg/dL (70-99); GLUCOSE 231 mg/dL (70-99)
[2016-11-10 01:37] LABS: TROP-I INTERPRETATION POSITIVE; TROPONIN-I 5.74 ng/mL (0.0-0.30)
[2016-11-10 02:27] LABS: BASE EXCESS 4.3 mEq/L (-3 to +3); BICARBONATE 32.8 mEq/L (22-26); CARBOXY HGB 2.2 % (0-5); METHEMOGLOBIN 1.7 % (0-1.5); PCO2 73 mm Hg (35-45); PO2 103 mm Hg (80-100); SITE RR; pH 7.26 (7.35-7.45)
[2016-11-10 02:28] LABS: COMMENTS - BLOOD GASES C+; DEVICE VENT; FI02 100 %; MECHANICAL RATE 26 resp/min; MODE AC; PEEP 13 CM/H20; TIDAL VOLUME 500 ML; TOTAL RESP RATE 26 resp/min
[2016-11-10 04:49] LABS: CHLORIDE 109 mEq/L (99-109); MAGNESIUM 1.9 mg/dL (1.3-2.7); POTASSIUM 4.7 mEq/L (3.7-5.4); SODIUM 146 mEq/L (136-147)
[2016-11-10 04:51] LABS: GLUCOSE 146 mg/dL (70-99)
[2016-11-10 04:52] LABS: ANION GAP 10 MEQ/L (2-14)
[2016-11-10 04:53] LABS: TOTAL BILIRUBIN 0.6 mg/dL (0.0-1.0)
[2016-11-10 04:54] LABS: ALKALINE PHOSPHATASE 81 IU/L (3-129)
[2016-11-10 04:55] LABS: GFR ESTIMATE (CALCULATED) > 59 mL/min/
[2016-11-10 04:56] LABS: UREA NITROGEN (BUN) 29 mg/dL (9-23)
[2016-11-10 05:00] LABS: BASE EXCESS 2.9 mEq/L (-3 to +3); BICARBONATE 31.8 mEq/L (22-26); CARBOXY HGB 1.7 % (0-5); COMMENTS - BLOOD GASES C+; METHEMOGLOBIN 1.5 % (0-1.5); PCO2 76 mm Hg (35-45); PO2 312 mm Hg (80-100); SITE ALINE; pH 7.23 (7.35-7.45)
[2016-11-10 05:01] LABS: DEVICE VENT; FI02 100 %; MECHANICAL RATE 26 resp/min; MODE AC; PEEP 13 CM/H20; TIDAL VOLUME 500 ML; TOTAL RESP RATE 26 resp/min
[2016-11-10 05:33] LABS: ABS NEUTROPHIL COUNT 19.8; BAND NEUTROPHILS 0.9 % (0-8.0); EOSINOPHIL ABS CT 0; HEMATOCRIT 32.4 % (38.0-50.0); INSTRUMENT ABS NEUTROPHIL CT 18.6 K/uL; LYMPHOCYTES 1.7 % (15.0-45.0); MCH 27.9 PG (29.0-34.0); MCHC 29.9 G/DL (30.0-36.0); MCV 93.1 FL (86-99); MEAN PLAT.VOLUME 9.1 uM^3 (9.0-12.4); PLAT.SUFFICIENCY ADEQUATE; PLATELET CLUMPS PRESENT - PLATELET COUNT APPEARS ADQ.; RBC DIS.WIDTH-CV 14.5 % (11.8-14.6); RBC DIS.WIDTH-SD 49.5 % (39-53); RED BLOOD COUNT 3.48 M/uL (4.00-5.50); SEG.NEUTROPHILS 96.5 % (46.0-76.0); WHITE BLOOD COUNT 20.3 K/uL (4.1-10.2)
[2016-11-10 05:34] LABS: PLATELET COUNT ND K/uL (156-360)
[2016-11-10 06:26] LABS: TROP-I INTERPRETATION POSITIVE; TROPONIN-I 3.39 ng/mL (0.0-0.30)
[2016-11-10 09:15] LABS: BASE EXCESS 4.5 mEq/L (-3 to +3); BICARBONATE 30.6 mEq/L (22-26); CARBOXY HGB 1.9 % (0-5); COMMENTS - BLOOD GASES C+; DEVICE 840; FI02 50 %; MECHANICAL RATE 28 resp/min; METHEMOGLOBIN 1.5 % (0-1.5); MODE A/C; PCO2 53 mm Hg (35-45); PO2 103 mm Hg (80-100); SITE ALINE; TOTAL RESP RATE 28 resp/min; pH 7.37 (7.35-7.45)
[2016-11-10 09:16] LABS: PEEP 8 CM/H20; TIDAL VOLUME 540 ML
[2016-11-10 12:50] LABS: POINT-OF-CARE METER ID UU13113731
[2016-11-10 14:20] LABS: TROP-I INTERPRETATION POSITIVE
[2016-11-10 18:45] LABS: POINT-OF-CARE METER ID UU14162636
[2016-11-10 20:57] LABS: TROP-I INTERPRETATION POSITIVE; TROPONIN-I 6.43 ng/mL (0.0-0.30)
[2016-11-11 01:17] LABS: POINT-OF-CARE METER ID UU14162636
[2016-11-11 05:35] LABS: TROP-I INTERPRETATION POSITIVE; TROPONIN-I 7.48 ng/mL (0.0-0.30)
[2016-11-11 06:02] LABS: UR CREATININE CONCENTRATION 143.6 MG/DL
[2016-11-11 06:27] LABS: ANION GAP 6 MEQ/L (2-14); GFR ESTIMATE (CALCULATED) > 59 mL/min/; GLUCOSE 117 mg/dL (70-99); POTASSIUM 4.1 MEQ/L (3.7-5.4); SAMPLE HEMOLYSIS CHECK 0; SAMPLE ICTERIC CHECK 0; SAMPLE LIPEMIA CHECK 0; SODIUM 147 MEQ/L (136-147); UREA NITROGEN (BUN) 33 mg/dL (9-23)
[2016-11-11 06:30] LABS: CHLORIDE 112 MEQ/L (99-109)
[2016-11-11 06:46] LABS: HEMATOCRIT 25.7 % (38.0-50.0); MCH 27.3 PG (29.0-34.0); MCHC 29.6 G/DL (30.0-36.0); MCV 92.4 FL (86-99); MEAN PLAT.VOLUME 9.6 uM^3 (9.0-12.4); RBC DIS.WIDTH-CV 14.2 % (11.8-14.6); RBC DIS.WIDTH-SD 48.8 % (39-53)
[2016-11-11 06:56] LABS: RED BLOOD COUNT 2.78 M/uL (4.00-5.50); WHITE BLOOD COUNT 10.7 K/uL (4.1-10.2)
[2016-11-11 06:57] LABS: PLATELET COUNT 329 K/uL (156-360)
[2016-11-11 12:30] VITALS: BP 91/47
[2016-11-11 14:00] LABS: ANION GAP 10 MEQ/L (2-14); CHLORIDE 112 MEQ/L (99-109); GFR ESTIMATE (CALCULATED) > 59 mL/min/; GLUCOSE 114 mg/dL (70-99); POTASSIUM 3.8 MEQ/L (3.7-5.4); SAMPLE HEMOLYSIS CHECK 0; SAMPLE ICTERIC CHECK 0; SAMPLE LIPEMIA CHECK 0; SODIUM 149 MEQ/L (136-147); UREA NITROGEN (BUN) 33 mg/dL (9-23)
[2016-11-11 14:03] LABS: TROP-I INTERPRETATION POSITIVE; TROPONIN-I 7.21 ng/mL (0.0-0.30)
[2016-11-11 14:20] VITALS: BP 122/58
[2016-11-11 14:41] VITALS: BP 132/66
[2016-11-11 15:41] VITALS: BP 107/50
[2016-11-11 16:45] VITALS: BP 113/58
[2016-11-11 18:04] LABS: HEMATOCRIT 28.4 % (38.0-50.0); MCH 27.9 PG (29.0-34.0); MCHC 30.6 G/DL (30.0-36.0); MEAN PLAT.VOLUME 9.8 uM^3 (9.0-12.4); PLATELET COUNT 346 K/uL (156-360); RBC DIS.WIDTH-CV 15.5 % (11.8-14.6); RBC DIS.WIDTH-SD 51.6 % (39-53); RED BLOOD COUNT 3.12 M/uL (4.00-5.50); WHITE BLOOD COUNT 10.4 K/uL (4.1-10.2)
[2016-11-11 18:40] LABS: TROPONIN-I 7.93 ng/mL (0.0-0.30)
[2016-11-11 18:41] LABS: TROP-I INTERPRETATION POSITIVE
[2016-11-11 21:00] VITALS: BP 110/66
[2016-11-11 23:54] LABS: POINT-OF-CARE METER ID UU13113803
[2016-11-12 00:57] LABS: VANCOMYCIN, TROUGH 6.4 MCG/ML (10-20)
[2016-11-12 01:49] LABS: TROP-I INTERPRETATION POSITIVE; TROPONIN-I 6.86 ng/mL (0.0-0.30)
[2016-11-12 05:54] LABS: HEMATOCRIT 28.5 % (38.0-50.0); MCH 27.7 PG (29.0-34.0); MCHC 30.2 G/DL (30.0-36.0); MCV 91.6 FL (86-99); MEAN PLAT.VOLUME 9.8 uM^3 (9.0-12.4); PLATELET COUNT 349 K/uL (156-360); RBC DIS.WIDTH-CV 15.8 % (11.8-14.6); RBC DIS.WIDTH-SD 52.4 % (39-53); RED BLOOD COUNT 3.11 M/uL (4.00-5.50); WHITE BLOOD COUNT 9.7 K/uL (4.1-10.2)
[2016-11-12 06:18] LABS: INTER. NORMALIZED RATIO 1.2; PROTHROMBIN TIME 12.3 (9.2-11.2)
[2016-11-12 06:20] LABS: POINT-OF-CARE METER ID UU13113803
[2016-11-12 06:34] LABS: TROP-I INTERPRETATION POSITIVE; TROPONIN-I 6.85 ng/mL (0.0-0.30)
[2016-11-12 07:09] LABS: ANION GAP 8 MEQ/L (2-14); CHLORIDE 114 MEQ/L (99-109); GFR ESTIMATE (CALCULATED) > 59 mL/min/; GLUCOSE 130 mg/dL (70-99); MAGNESIUM 2.2 mg/dl (1.3-2.7); POTASSIUM 3.6 MEQ/L (3.7-5.4); SAMPLE HEMOLYSIS CHECK 0; SAMPLE ICTERIC CHECK 0; SAMPLE LIPEMIA CHECK 0; SODIUM 150 MEQ/L (136-147); UREA NITROGEN (BUN) 33 mg/dL (9-23)
[2016-11-12 10:52] LABS: BASE EXCESS 4.6 mEq/L (-3 to +3); BICARBONATE 28.2 mEq/L (22-26); CARBOXY HGB 1.7 % (0-5); COMMENTS - BLOOD GASES C+; METHEMOGLOBIN 1.4 % (0-1.5); PCO2 37 mm Hg (35-45); PO2 75 mm Hg (80-100); pH 7.49 (7.35-7.45)
[2016-11-12 10:53] LABS: DEVICE 840 VENTILATOR; FI02 40 %; MECHANICAL RATE 28 resp/min; MODE AC; PEEP 5 CM/H20; SITE LT RADIAL ALINE; TIDAL VOLUME 540 ML; TOTAL RESP RATE 28 resp/min
[2016-11-12 12:21] LABS: POINT-OF-CARE METER ID UU13113803
[2016-11-12 13:29] LABS: TROP-I INTERPRETATION POSITIVE; TROPONIN-I 6.54 ng/mL (0.0-0.30)
[2016-11-12 14:00] VITALS: BP 130/73
[2016-11-12 17:21] LABS: POINT-OF-CARE METER ID UU13113803
[2016-11-12 19:12] LABS: TROP-I INTERPRETATION POSITIVE; TROPONIN-I 5.94 ng/mL (0.0-0.30)
[2016-11-12 22:00] VITALS: BP 111/72
[2016-11-12 23:31] LABS: POINT-OF-CARE METER ID UU14162636
[2016-11-13 05:20] LABS: POINT-OF-CARE METER ID UU14162636
[2016-11-13 05:30] LABS: HEMATOCRIT 30.8 % (38.0-50.0); MCH 27.8 PG (29.0-34.0); MCHC 29.2 G/DL (30.0-36.0); MCV 95.1 FL (86-99); MEAN PLAT.VOLUME 9.5 uM^3 (9.0-12.4); PLATELET COUNT 374 K/uL (156-360); RBC DIS.WIDTH-CV 15.7 % (11.8-14.6); RED BLOOD COUNT 3.24 M/uL (4.00-5.50); WHITE BLOOD COUNT 10.3 K/uL (4.1-10.2)
[2016-11-13 06:00] LABS: INTER. NORMALIZED RATIO 1.2; PROTHROMBIN TIME 11.9 (9.2-11.2)
[2016-11-13 07:55] LABS: ANION GAP 6 MEQ/L (2-14); CHLORIDE 117 MEQ/L (99-109); GFR ESTIMATE (CALCULATED) > 59 mL/min/; GLUCOSE 128 mg/dL (70-99); MAGNESIUM 2.5 mg/dl (1.3-2.7); POTASSIUM 4.2 MEQ/L (3.7-5.4); SAMPLE HEMOLYSIS CHECK 0; SAMPLE ICTERIC CHECK 0; SAMPLE LIPEMIA CHECK 0; SODIUM 153 MEQ/L (136-147); UREA NITROGEN (BUN) 30 mg/dL (9-23)
[2016-11-13 08:00] VITALS: BP 118/54
[2016-11-13 13:24] LABS: POINT-OF-CARE METER ID UU13113731
[2016-11-13 17:50] LABS: POINT-OF-CARE METER ID UU13113731
[2016-11-14 00:58] LABS: POINT-OF-CARE METER ID UU13113731
[2016-11-14 05:28] LABS: HEMATOCRIT 30.6 % (38.0-50.0); MCH 27.3 PG (29.0-34.0); MCHC 28.1 G/DL (30.0-36.0); MCV 97.1 FL (86-99); MEAN PLAT.VOLUME 9.6 uM^3 (9.0-12.4); PLATELET COUNT 336 K/uL (156-360); RBC DIS.WIDTH-CV 15.6 % (11.8-14.6); RBC DIS.WIDTH-SD 55.5 % (39-53); RED BLOOD COUNT 3.15 M/uL (4.00-5.50)
[2016-11-14 05:34] LABS: INTER. NORMALIZED RATIO 1.2; PROTHROMBIN TIME 12.2 (9.2-11.2)
[2016-11-14 05:51] LABS: ANION GAP 7 MEQ/L (2-14); CHLORIDE 117 MEQ/L (99-109); GFR ESTIMATE (CALCULATED) > 59 mL/min/; GLUCOSE 166 mg/dL (70-99); MAGNESIUM 2.4 mg/dl (1.3-2.7); POTASSIUM 4.2 MEQ/L (3.7-5.4); SAMPLE HEMOLYSIS CHECK 0; SAMPLE ICTERIC CHECK 0; SAMPLE LIPEMIA CHECK 0; SODIUM 153 MEQ/L (136-147); UREA NITROGEN (BUN) 28 mg/dL (9-23)
[2016-11-14 06:35] LABS: POINT-OF-CARE METER ID UU13113731
[2016-11-14 11:55] LABS: POINT-OF-CARE METER ID UU13113731
[2016-11-14 17:24] LABS: POINT-OF-CARE METER ID UU13113731
[2016-11-15] VITALS (7 sets, daily range): BP systolic 0–163; BP diastolic 0–96
[2016-11-15 01:03] LABS: POINT-OF-CARE METER ID UU14174217
[2016-11-15 04:52] LABS: HEMATOCRIT 31.7 % (38.0-50.0); MCH 27.5 PG (29.0-34.0); MCV 94.9 FL (86-99); MEAN PLAT.VOLUME 10.3 uM^3 (9.0-12.4); PLATELET COUNT 328 K/uL (156-360); RBC DIS.WIDTH-CV 14.9 % (11.8-14.6); RBC DIS.WIDTH-SD 51.7 % (39-53); RED BLOOD COUNT 3.34 M/uL (4.00-5.50); WHITE BLOOD COUNT 11.1 K/uL (4.1-10.2)
[2016-11-15 05:00] LABS: INTER. NORMALIZED RATIO 1.2
[2016-11-15 05:05] LABS: CHLORIDE 109 mEq/L (99-109); POTASSIUM 3.5 mEq/L (3.7-5.4); SODIUM 152 mEq/L (136-147)
[2016-11-15 05:06] LABS: MAGNESIUM 2.1 mg/dL (1.3-2.7)
[2016-11-15 05:07] LABS: GLUCOSE 180 mg/dL (70-99)
[2016-11-15 05:09] LABS: ANION GAP 9 MEQ/L (2-14)
[2016-11-15 05:11] LABS: GFR ESTIMATE (CALCULATED) > 59 mL/min/
[2016-11-15 05:12] LABS: UREA NITROGEN (BUN) 27 mg/dL (9-23)
[2016-11-15 13:27] LABS: POINT-OF-CARE METER ID UU14174217
[2016-11-15 16:51] LABS: ANION GAP 8 MEQ/L (2-14); CHLORIDE 107 MEQ/L (99-109); GFR ESTIMATE (CALCULATED) > 59 mL/min/; GLUCOSE 141 mg/dL (70-99); POTASSIUM 3.6 MEQ/L (3.7-5.4); SAMPLE HEMOLYSIS CHECK 0; SAMPLE ICTERIC CHECK 0; SAMPLE LIPEMIA CHECK 0; SODIUM 150 MEQ/L (136-147); UREA NITROGEN (BUN) 29 mg/dL (9-23)
[2016-11-15 18:19] LABS: POINT-OF-CARE METER ID UU14174217
[2016-11-16] VITALS (9 sets, daily range): BP systolic 121–154; BP diastolic 60–82
[2016-11-16 00:28] LABS: POINT-OF-CARE METER ID UU14174217
[2016-11-16 04:54] LABS: HEMATOCRIT 32.6 % (38.0-50.0); INTER. NORMALIZED RATIO 1.1; MCH 27.2 PG (29.0-34.0); MCHC 28.8 G/DL (30.0-36.0); MCV 94.2 FL (86-99); MEAN PLAT.VOLUME 10.1 uM^3 (9.0-12.4); PLATELET COUNT 439 K/uL (156-360); PROTHROMBIN TIME 11.6 (9.2-11.2); RBC DIS.WIDTH-CV 15.4 % (11.8-14.6); RBC DIS.WIDTH-SD 52.3 % (39-53); RED BLOOD COUNT 3.46 M/uL (4.00-5.50); WHITE BLOOD COUNT 17.2 K/uL (4.1-10.2)
[2016-11-16 05:13] LABS: CHLORIDE 105 mEq/L (99-109); MAGNESIUM 2.1 mg/dL (1.3-2.7); POTASSIUM 3.1 mEq/L (3.7-5.4); SODIUM 150 mEq/L (136-147)
[2016-11-16 05:15] LABS: BASE EXCESS 20.4 mEq/L (-3 to +3); BICARBONATE 47.3 mEq/L (22-26); CARBOXY HGB 2.3 % (0-5); COMMENTS - BLOOD GASES C+; DEVICE VENTILATOR; FI02 45 %; MECHANICAL RATE 20 resp/min; METHEMOGLOBIN 1.6 % (0-1.5); MODE AC; PCO2 68 mm Hg (35-45); PEEP 10 CM/H20; PO2 74 mm Hg (80-100); SITE A-LINE; TIDAL VOLUME 480 ML; TOTAL RESP RATE 23 resp/min; pH 7.45 (7.35-7.45)
[2016-11-16 05:15] LABS: GLUCOSE 117 mg/dL (70-99)
[2016-11-16 05:16] LABS: ANION GAP 6 MEQ/L (2-14)
[2016-11-16 05:19] LABS: GFR ESTIMATE (CALCULATED) > 59 mL/min/; UREA NITROGEN (BUN) 27 mg/dL (9-23)
[2016-11-16 12:24] LABS: POINT-OF-CARE METER ID UU13113731; POINT-OF-CARE USER ID 612031313
[2016-11-16 13:07] LABS: ANION GAP 9 MEQ/L (2-14); CHLORIDE 100 MEQ/L (99-109); GFR ESTIMATE (CALCULATED) > 59 mL/min/; GLUCOSE 124 mg/dL (70-99); POTASSIUM 2.9 MEQ/L (3.7-5.4); SAMPLE HEMOLYSIS CHECK 0; SAMPLE ICTERIC CHECK 0; SAMPLE LIPEMIA CHECK 0; SODIUM 148 MEQ/L (136-147); UREA NITROGEN (BUN) 25 mg/dL (9-23)
[2016-11-16 17:54] LABS: POINT-OF-CARE USER ID 612031313
[2016-11-16 18:07] LABS: BASE EXCESS 22.7 mEq/L (-3 to +3); BICARBONATE 48.7 mEq/L (22-26); CARBOXY HGB 2.3 % (0-5); METHEMOGLOBIN 1.6 % (0-1.5); PO2 66 mm Hg (80-100); pH 7.51 (7.35-7.45)
[2016-11-16 18:08] LABS: COMMENTS - BLOOD GASES C+; DEVICE VENT; FI02 45 %; MECHANICAL RATE 20 resp/min; MODE SPONT; PCO2 61 mm Hg (35-45); SITE A LINE; TOTAL RESP RATE 21 resp/min
[2016-11-16 19:54] LABS: ANION GAP 7 MEQ/L (2-14); CHLORIDE 98 MEQ/L (99-109); GFR ESTIMATE (CALCULATED) > 59 mL/min/; GLUCOSE 123 mg/dL (70-99); SAMPLE HEMOLYSIS CHECK 0; SAMPLE ICTERIC CHECK 0; SAMPLE LIPEMIA CHECK 0; SODIUM 145 MEQ/L (136-147); UREA NITROGEN (BUN) 24 mg/dL (9-23)
[2016-11-16 20:12] LABS: POTASSIUM 3.6 MEQ/L (3.7-5.4)
[2016-11-17] VITALS (10 sets, daily range): BP systolic 101–169; BP diastolic 53–90
[2016-11-17 00:40] LABS: POINT-OF-CARE METER ID UU14162636
[2016-11-17 05:33] LABS: BASE EXCESS 21.9 mEq/L (-3 to +3); BICARBONATE 49.1 mEq/L (22-26); CARBOXY HGB 2.6 % (0-5); COMMENTS - BLOOD GASES C+; DEVICE 840; FI02 40 %; METHEMOGLOBIN 1.8 % (0-1.5); PCO2 69 mm Hg (35-45); PO2 68 mm Hg (80-100); SITE A-LINE; pH 7.46 (7.35-7.45)
[2016-11-17 05:34] LABS: MECHANICAL RATE 20 resp/min; MODE AC/VC+; PEEP 5 CM/H20; TIDAL VOLUME 480 ML; TOTAL RESP RATE 24 resp/min
[2016-11-17 06:41] LABS: EOSINOPHIL (%) 5.2 % (0-5); EOSINOPHIL COUNT 0.7 K/uL (0-0.3); HEMATOCRIT 32.5 % (38.0-50.0); IMMATURE GRANULOCYTE (%) 0.8 % (0.0-0.7); IMMATURE GRANULOCYTE COUNT 0.1 K/uL; INSTRUMENT ABS NEUTROPHIL CT 10.5 K/uL; LYMPHOCYTE COUNT 1.7 K/uL (1.0-2.8); MCH 28.7 PG (29.0-34.0); MCHC 30.5 G/DL (30.0-36.0); MCV 94.2 FL (86-99); MEAN PLAT.VOLUME 10.5 uM^3 (9.0-12.4); MONOCYTE (%) 6.9 % (3-12); NEUTROPHIL (%) 74.9 % (45-76); NEUTROPHIL COUNT 10.5 K/uL (1.8-6.4); PLATELET COUNT 429 K/uL (156-360); RBC DIS.WIDTH-CV 15.7 % (11.8-14.6); RBC DIS.WIDTH-SD 52.9 % (39-53); RED BLOOD COUNT 3.45 M/uL (4.00-5.50)
[2016-11-17 07:24] LABS: ALKALINE PHOSPHATASE 54 IU/L (3-129); ANION GAP 8 MEQ/L (2-14); CHLORIDE 100 MEQ/L (99-109); DIRECT BILIRUBIN 0.1 mg/dL (0.0-0.3); GFR ESTIMATE (CALCULATED) > 59 mL/min/; GLUCOSE 120 mg/dL (70-99); MAGNESIUM 2.2 mg/dl (1.3-2.7); POTASSIUM 3.2 MEQ/L (3.7-5.4); SAMPLE HEMOLYSIS CHECK 0; SAMPLE ICTERIC CHECK 0; SAMPLE LIPEMIA CHECK 0; SODIUM 147 MEQ/L (136-147); TOTAL BILIRUBIN 0.5 MG/DL (0.0-1.0); UREA NITROGEN (BUN) 23 mg/dL (9-23)
[2016-11-17 14:25] LABS: BASE EXCESS 18.3 mEq/L (-3 to +3); BICARBONATE 44.8 mEq/L (22-26); CARBOXY HGB 2.7 % (0-5); COMMENTS - BLOOD GASES C+; METHEMOGLOBIN 1.6 % (0-1.5); PCO2 63 mm Hg (35-45); PO2 80 mm Hg (80-100); SITE A LINE; pH 7.46 (7.35-7.45)
[2016-11-17 14:26] LABS: DEVICE VENTILATOR; PEEP 5 CM/H20; TOTAL RESP RATE 15 resp/min
[2016-11-18] VITALS (7 sets, daily range): BP systolic 90–149; BP diastolic 44–82
[2016-11-18 07:10] LABS: HEMATOCRIT 31.3 % (38.0-50.0); MCHC 30.4 G/DL (30.0-36.0); MCV 92.3 FL (86-99); MEAN PLAT.VOLUME 10.8 uM^3 (9.0-12.4); PLATELET COUNT 395 K/uL (156-360); RBC DIS.WIDTH-CV 15.5 % (11.8-14.6); RBC DIS.WIDTH-SD 51.8 % (39-53); RED BLOOD COUNT 3.39 M/uL (4.00-5.50); WHITE BLOOD COUNT 12.9 K/uL (4.1-10.2)
[2016-11-18 07:47] LABS: ANION GAP 7 MEQ/L (2-14); CHLORIDE 97 MEQ/L (99-109); GFR ESTIMATE (CALCULATED) > 59 mL/min/; GLUCOSE 123 mg/dL (70-99); MAGNESIUM 2.3 mg/dl (1.3-2.7); POTASSIUM 2.9 MEQ/L (3.7-5.4); SAMPLE HEMOLYSIS CHECK 0; SAMPLE ICTERIC CHECK 0; SAMPLE LIPEMIA CHECK 0; SODIUM 144 MEQ/L (136-147); UREA NITROGEN (BUN) 25 mg/dL (9-23)
[2016-11-18 13:54] LABS: BASE EXCESS 17.5 mEq/L (-3 to +3); BICARBONATE 42.5 mEq/L (22-26); CARBOXY HGB 2.4 % (0-5); METHEMOGLOBIN 1.3 % (0-1.5); pH 7.52 (7.35-7.45)
[2016-11-18 13:55] LABS: COMMENTS - BLOOD GASES C+; FI02 50 %; O2 FLOW 60 L/MIN; PCO2 52 mm Hg (35-45); PO2 61 mm Hg (80-100); SITE A LINE; TOTAL RESP RATE 28 resp/min
[2016-11-18 20:45] LABS: CHLORIDE 100 mEq/L (99-109); SODIUM 142 mEq/L (136-147)
[2016-11-18 20:46] LABS: MAGNESIUM 2.2 mg/dL (1.3-2.7)
[2016-11-18 20:47] LABS: GLUCOSE 110 mg/dL (70-99)
[2016-11-18 20:49] LABS: ANION GAP 6 MEQ/L (2-14)
[2016-11-18 20:51] LABS: GFR ESTIMATE (CALCULATED) > 59 mL/min/
[2016-11-18 20:52] LABS: UREA NITROGEN (BUN) 20 mg/dL (9-23)
[2016-11-19] VITALS (11 sets, daily range): BP systolic 94–137; BP diastolic 43–77
[2016-11-19 06:47] LABS: HEMATOCRIT 32.1 % (38.0-50.0); MCH 27.3 PG (29.0-34.0); MCHC 30.2 G/DL (30.0-36.0); MCV 90.4 FL (86-99); MEAN PLAT.VOLUME 10.5 uM^3 (9.0-12.4); PLATELET COUNT 402 K/uL (156-360); RBC DIS.WIDTH-CV 15.1 % (11.8-14.6); RBC DIS.WIDTH-SD 49.1 % (39-53); RED BLOOD COUNT 3.55 M/uL (4.00-5.50); WHITE BLOOD COUNT 12.6 K/uL (4.1-10.2)
[2016-11-19 07:24] LABS: ANION GAP 7 MEQ/L (2-14); CHLORIDE 103 MEQ/L (99-109); GFR ESTIMATE (CALCULATED) > 59 mL/min/; GLUCOSE 85 mg/dL (70-99); MAGNESIUM 2.3 mg/dl (1.3-2.7); POTASSIUM 3.2 MEQ/L (3.7-5.4); SAMPLE HEMOLYSIS CHECK 0; SAMPLE ICTERIC CHECK 0; SAMPLE LIPEMIA CHECK 0; SODIUM 142 MEQ/L (136-147); UREA NITROGEN (BUN) 19 mg/dL (9-23)
[2016-11-20] VITALS (19 sets, daily range): BP systolic 114–204; BP diastolic 62–128
[2016-11-20 06:55] LABS: EOSINOPHIL (%) 3.5 % (0-5); EOSINOPHIL COUNT 0.3 K/uL (0-0.3); HEMATOCRIT 30.4 % (38.0-50.0); IMMATURE GRANULOCYTE (%) 0.5 % (0.0-0.7); IMMATURE GRANULOCYTE COUNT 0.1 K/uL; INSTRUMENT ABS NEUTROPHIL CT 6.9 K/uL; LYMPHOCYTE COUNT 1.4 K/uL (1.0-2.8); MCH 27.9 PG (29.0-34.0); MCHC 30.9 G/DL (30.0-36.0); MCV 90.2 FL (86-99); MEAN PLAT.VOLUME 10.7 uM^3 (9.0-12.4); MONOCYTE (%) 8.3 % (3-12); MONOCYTE COUNT 0.8 K/uL (0-0.8); NEUTROPHIL (%) 73.3 % (45-76); NEUTROPHIL COUNT 6.9 K/uL (1.8-6.4); PLATELET COUNT 355 K/uL (156-360); RBC DIS.WIDTH-CV 15.2 % (11.8-14.6); RBC DIS.WIDTH-SD 48.9 % (39-53); RED BLOOD COUNT 3.37 M/uL (4.00-5.50); WHITE BLOOD COUNT 9.4 K/uL (4.1-10.2)
[2016-11-20 07:15] LABS: ANION GAP 10 MEQ/L (2-14); CHLORIDE 107 MEQ/L (99-109); GFR ESTIMATE (CALCULATED) > 59 mL/min/; GLUCOSE 84 mg/dL (70-99); MAGNESIUM 2.3 mg/dl (1.3-2.7); POTASSIUM 2.8 MEQ/L (3.7-5.4); SAMPLE HEMOLYSIS CHECK 0; SAMPLE ICTERIC CHECK 0; SAMPLE LIPEMIA CHECK 0; SODIUM 146 MEQ/L (136-147); UREA NITROGEN (BUN) 24 mg/dL (9-23)
[2016-11-20 18:52] LABS: CHLORIDE 105 mEq/L (99-109); SODIUM 141 mEq/L (136-147)
[2016-11-20 18:54] LABS: GLUCOSE 88 mg/dL (70-99)
[2016-11-20 18:56] LABS: ANION GAP 9 MEQ/L (2-14)
[2016-11-20 18:58] LABS: GFR ESTIMATE (CALCULATED) > 59 mL/min/
[2016-11-20 18:59] LABS: UREA NITROGEN (BUN) 24 mg/dL (9-23)
[2016-11-20 19:41] LABS: BICARBONATE 29.1 mEq/L (22-26); CARBOXY HGB 2.3 % (0-5); COMMENTS - BLOOD GASES C+; DEVICE NCHH; FI02 100 %; METHEMOGLOBIN 1.4 % (0-1.5); O2 FLOW 50 L/MIN; PCO2 40 mm Hg (35-45); PO2 60 mm Hg (80-100); SITE LR; TOTAL RESP RATE 45 resp/min; pH 7.47 (7.35-7.45)
[2016-11-20 22:16] LABS: ADD MIUA? YES; BILIRUBIN NEGATIVE; BLOOD LARGE; COLOR YELLOW ((YELLOW)); GLUCOSE (STRIP) NEGATIVE; KETONES NEGATIVE; LEUKOCYTES NEGATIVE; NITRITE NEGATIVE; PROTEIN (STRIP) NEGATIVE; SPECIFIC GRAVITY 1.015 (1.000-1.030); UROBILINOGEN 0.2 MG/DL (0.2-1.0)
[2016-11-20 22:17] LABS: BASE EXCESS -2.4 mEq/L (-3 to +3); BICARBONATE 30.6 mEq/L (22-26); CARBOXY HGB 2.9 % (0-5); METHEMOGLOBIN 1.6 % (0-1.5)
[2016-11-20 22:18] LABS: COMMENTS - BLOOD GASES C+; DEVICE 980; FI02 100 %; MECHANICAL RATE 25 resp/min; MODE BILEVEL 48/20; PCO2 113 mm Hg (35-45); PO2 150 mm Hg (80-100); PRESSURE CONTROL VENTILATION 48 CM H20; SITE LR; TOTAL RESP RATE 25 resp/min; pH 7.04 (7.35-7.45)
[2016-11-20 22:19] LABS: INSPIRATION TIME 1.18 seconds; PEEP 20 CM/H20
[2016-11-20 22:43] LABS: BACTERIA 2+ /HPF; CASTS NONE SEEN /LPF; CRYSTALS PRESENT; EPITHELIAL CELLS RARE /HPF; MUCUS RARE /LPF; RED BLOOD CELLS TNTC /HPF (0-5); UCUL ADDED? NO; WHITE BLOOD CELLS 0-5 /HPF (0-5)
[2016-11-20 22:44] LABS: AMORPHOUS PHOSPHATE CRYSTALS 3+
[2016-11-20 23:24] LABS: BASE EXCESS -2.4 mEq/L (-3 to +3); BICARBONATE 31.4 mEq/L (22-26); CARBOXY HGB 2.7 % (0-5); METHEMOGLOBIN 1.8 % (0-1.5)
[2016-11-20 23:25] LABS: DEVICE 980; FI02 100 %; INSPIRATION TIME 1.18 seconds; MECHANICAL RATE 25 resp/min; MODE AC/PC; PCO2 119 mm Hg (35-45); PO2 252 mm Hg (80-100); PRESSURE CONTROL VENTILATION 30 CM H20; SITE RR; TOTAL RESP RATE 25 resp/min; pH 7.03 (7.35-7.45)
[2016-11-20 23:26] LABS: COMMENTS - BLOOD GASES C+; PEEP 20 CM/H20
[2016-11-21] VITALS (16 sets, daily range): BP systolic 68–135; BP diastolic 42–71
[2016-11-21 01:15] LABS: BASE EXCESS -0.1 mEq/L (-3 to +3); BICARBONATE 29.4 mEq/L (22-26); CARBOXY HGB 1.8 % (0-5); METHEMOGLOBIN 1.9 % (0-1.5)
[2016-11-21 01:16] LABS: COMMENTS - BLOOD GASES C+; DEVICE 980; FI02 80 %; MECHANICAL RATE 35 resp/min; MODE AC/PC; PCO2 77 mm Hg (35-45); PEEP 16 CM/H20; PO2 217 mm Hg (80-100); PRESSURE CONTROL VENTILATION 30 CM H20; SITE LR ALINE; TOTAL RESP RATE 35 resp/min; pH 7.19 (7.35-7.45)
[2016-11-21 04:35] LABS: BASE EXCESS -0.7 mEq/L (-3 to +3); BICARBONATE 26.4 mEq/L (22-26); CARBOXY HGB 1.9 % (0-5); METHEMOGLOBIN 1.8 % (0-1.5); PO2 215 mm Hg (80-100)
[2016-11-21 04:36] LABS: COMMENTS - BLOOD GASES C+; DEVICE 980; FI02 70 %; PCO2 55 mm Hg (35-45); SITE LR ALINE; pH 7.29 (7.35-7.45)
[2016-11-21 04:37] LABS: MECHANICAL RATE 40 resp/min; MODE AC/PC; PEEP 14 CM/H20; PRESSURE CONTROL VENTILATION 30 CM H20; TOTAL RESP RATE 40 resp/min
[2016-11-21 05:05] LABS: HEMATOCRIT 34.5 % (38.0-50.0); MCH 27.6 PG (29.0-34.0); MCHC 30.1 G/DL (30.0-36.0); MCV 91.5 FL (86-99); MEAN PLAT.VOLUME 10.5 uM^3 (9.0-12.4); RBC DIS.WIDTH-CV 15.3 % (11.8-14.6); RBC DIS.WIDTH-SD 50.8 % (39-53); RED BLOOD COUNT 3.77 M/uL (4.00-5.50); WHITE BLOOD COUNT 20.9 K/uL (4.1-10.2)
[2016-11-21 05:08] LABS: PLATELET COUNT 476 K/uL (156-360)
[2016-11-21 05:15] LABS: CHLORIDE 111 mEq/L (99-109); SODIUM 143 mEq/L (136-147)
[2016-11-21 05:16] LABS: MAGNESIUM 1.9 mg/dL (1.3-2.7)
[2016-11-21 05:18] LABS: ANION GAP 7 MEQ/L (2-14)
[2016-11-21 05:21] LABS: GFR ESTIMATE (CALCULATED) > 59 mL/min/
[2016-11-21 05:22] LABS: GLUCOSE 150 mg/dL (70-99); POTASSIUM 5.6 mEq/L (3.7-5.4); UREA NITROGEN (BUN) 29 mg/dL (9-23)
[2016-11-21 05:24] LABS: TROP-I INTERPRETATION POSITIVE; TROPONIN-I 0.86 ng/mL (0.0-0.30)
[2016-11-21 12:52] LABS: TROP-I INTERPRETATION POSITIVE; TROPONIN-I 0.71 ng/mL (0.0-0.30)
[2016-11-21 13:05] LABS: BASE EXCESS 1.2 mEq/L (-3 to +3); CARBOXY HGB 1.7 % (0-5); COMMENTS - BLOOD GASES A+; DEVICE 980; FI02 60 %; METHEMOGLOBIN 1.4 % (0-1.5); PCO2 41 mm Hg (35-45); PO2 219 mm Hg (80-100); SITE ALINE; pH 7.41 (7.35-7.45)
[2016-11-21 13:06] LABS: MECHANICAL RATE 40 resp/min; MODE ACPC; PEEP 10 CM/H20; TOTAL RESP RATE 40 resp/min
[2016-11-21 18:18] LABS: TROP-I INTERPRETATION INDETERMINATE; TROPONIN-I 0.59 ng/mL (0.0-0.30)
[2016-11-22] VITALS (11 sets, daily range): BP systolic 98–135; BP diastolic 59–78
[2016-11-22 05:36] LABS: MCH 28.2 PG (29.0-34.0); MCHC 30.7 G/DL (30.0-36.0); MCV 91.8 FL (86-99); MEAN PLAT.VOLUME 10.5 uM^3 (9.0-12.4); PLATELET COUNT 380 K/uL (156-360); RBC DIS.WIDTH-CV 15.5 % (11.8-14.6); RBC DIS.WIDTH-SD 50.8 % (39-53); RED BLOOD COUNT 3.05 M/uL (4.00-5.50); WHITE BLOOD COUNT 14.9 K/uL (4.1-10.2)
[2016-11-22 06:04] LABS: ANION GAP 8 MEQ/L (2-14); CHLORIDE 110 MEQ/L (99-109); GFR ESTIMATE (CALCULATED) > 59 mL/min/; GLUCOSE 127 mg/dL (70-99); MAGNESIUM 2.1 mg/dl (1.3-2.7); POTASSIUM 4.7 MEQ/L (3.7-5.4); SAMPLE HEMOLYSIS CHECK 0; SAMPLE ICTERIC CHECK 0; SAMPLE LIPEMIA CHECK 0; SODIUM 143 MEQ/L (136-147); UREA NITROGEN (BUN) 38 mg/dL (9-23); VANCOMYCIN, TROUGH 18.8 MCG/ML (10-20)
[2016-11-23] VITALS (12 sets, daily range): BP systolic 95–133; BP diastolic 46–71
[2016-11-23 05:43] LABS: HEMATOCRIT 26.8 % (38.0-50.0); MCH 28.5 PG (29.0-34.0); MCHC 30.2 G/DL (30.0-36.0); MCV 94.4 FL (86-99); MEAN PLAT.VOLUME 10.9 uM^3 (9.0-12.4); PLATELET COUNT 323 K/uL (156-360); RBC DIS.WIDTH-CV 15.8 % (11.8-14.6); RBC DIS.WIDTH-SD 53.4 % (39-53); RED BLOOD COUNT 2.84 M/uL (4.00-5.50); WHITE BLOOD COUNT 14.2 K/uL (4.1-10.2)
[2016-11-23 06:47] LABS: ANION GAP 4 MEQ/L (2-14); CHLORIDE 110 MEQ/L (99-109); GFR ESTIMATE (CALCULATED) > 59 mL/min/; GLUCOSE 177 mg/dL (70-99); MAGNESIUM 2.3 mg/dl (1.3-2.7); POTASSIUM 4.5 MEQ/L (3.7-5.4); SAMPLE HEMOLYSIS CHECK 0; SAMPLE ICTERIC CHECK 0; SAMPLE LIPEMIA CHECK 0; SODIUM 140 MEQ/L (136-147); UREA NITROGEN (BUN) 39 mg/dL (9-23)
[2016-11-24] VITALS (7 sets, daily range): BP systolic 91–122; BP diastolic 50–68
[2016-11-24 05:46] LABS: HEMATOCRIT 24.2 % (38.0-50.0); MCH 28.2 PG (29.0-34.0); MCHC 29.8 G/DL (30.0-36.0); MCV 94.9 FL (86-99); MEAN PLAT.VOLUME 10.9 uM^3 (9.0-12.4); PLATELET COUNT 275 K/uL (156-360); RBC DIS.WIDTH-CV 15.7 % (11.8-14.6); RBC DIS.WIDTH-SD 53.7 % (39-53); RED BLOOD COUNT 2.55 M/uL (4.00-5.50); WHITE BLOOD COUNT 13.5 K/uL (4.1-10.2)
[2016-11-24 06:38] LABS: ANION GAP 4 MEQ/L (2-14); CHLORIDE 112 MEQ/L (99-109); GFR ESTIMATE (CALCULATED) > 59 mL/min/; GLUCOSE 164 mg/dL (70-99); MAGNESIUM 2.1 mg/dl (1.3-2.7); POTASSIUM 4.7 MEQ/L (3.7-5.4); SAMPLE HEMOLYSIS CHECK 0; SAMPLE ICTERIC CHECK 0; SAMPLE LIPEMIA CHECK 0; SODIUM 145 MEQ/L (136-147); UREA NITROGEN (BUN) 35 mg/dL (9-23); VANCOMYCIN, TROUGH 17.9 MCG/ML (10-20)
[2016-11-24 08:56] LABS: BASE EXCESS 4.2 mEq/L (-3 to +3); BICARBONATE 30.9 mEq/L (22-26); CARBOXY HGB 2.1 % (0-5); METHEMOGLOBIN 1.2 % (0-1.5); pH 7.32 (7.35-7.45)
[2016-11-24 08:57] LABS: COMMENTS - BLOOD GASES C+; DEVICE VENT; FI02 60 %; MECHANICAL RATE 20 resp/min; MODE ACVC+; PCO2 60 mm Hg (35-45); PEEP 10 CM/H20; PO2 155 mm Hg (80-100); SITE ALINE; TIDAL VOLUME 450 ML; TOTAL RESP RATE 21 resp/min
[2016-11-24 17:17] LABS: POINT-OF-CARE METER ID UU13113748
[2016-11-25] VITALS (15 sets, daily range): BP systolic 92–125; BP diastolic 46–63
[2016-11-25 02:24] LABS: POINT-OF-CARE METER ID UU13113748
[2016-11-25 05:40] LABS: POINT-OF-CARE METER ID UU13113748
[2016-11-25 06:07] LABS: GFR ESTIMATE (CALCULATED) > 59 mL/min/
[2016-11-25 07:55] LABS: ANION GAP 6 MEQ/L (2-14); CHLORIDE 111 MEQ/L (99-109); GLUCOSE 123 mg/dL (70-99); POTASSIUM 4.6 MEQ/L (3.7-5.4); SODIUM 146 MEQ/L (136-147); UREA NITROGEN (BUN) 35 mg/dL (9-23)
[2016-11-25 09:25] LABS: HEMATOCRIT 23.7 % (38.0-50.0); MCHC 29.1 G/DL (30.0-36.0); MCV 96.3 FL (86-99); MEAN PLAT.VOLUME 10.8 uM^3 (9.0-12.4); PLATELET COUNT 232 K/uL (156-360); RBC DIS.WIDTH-CV 15.8 % (11.8-14.6); RED BLOOD COUNT 2.46 M/uL (4.00-5.50); WHITE BLOOD COUNT 10.5 K/uL (4.1-10.2)
[2016-11-25 10:13] LABS: EOSINOPHIL (%) 0 % (0-5); IMMATURE GRANULOCYTE (%) 0.4 % (0.0-0.7); INSTRUMENT ABS NEUTROPHIL CT 9.3 K/uL; LYMPHOCYTE COUNT 0.4 K/uL (1.0-2.8); MONOCYTE (%) 7.7 % (3-12); MONOCYTE COUNT 0.8 K/uL (0-0.8); NEUTROPHIL (%) 88.5 % (45-76); NEUTROPHIL COUNT 9.3 K/uL (1.8-6.4); PLAT.SUFFICIENCY ADEQUATE
[2016-11-25 12:21] LABS: POINT-OF-CARE METER ID UU13113748
[2016-11-25 18:02] LABS: HEMATOCRIT 29.6 % (38.0-50.0); MCV 94.6 FL (86-99)
[2016-11-25 18:07] LABS: POINT-OF-CARE METER ID UU13113748
[2016-11-25 23:53] LABS: POINT-OF-CARE METER ID UU13113748
[2016-11-26] VITALS (10 sets, daily range): BP systolic 99–133; BP diastolic 52–74
[2016-11-26 05:24] LABS: BASE EXCESS 12.6 mEq/L (-3 to +3); BICARBONATE 39.5 mEq/L (22-26); CARBOXY HGB 2.8 % (0-5); METHEMOGLOBIN 1.9 % (0-1.5); PCO2 70 mm Hg (35-45); PO2 121 mm Hg (80-100); pH 7.36 (7.35-7.45)
[2016-11-26 05:25] LABS: COMMENTS - BLOOD GASES C+; DEVICE VENT; FI02 60 %; MECHANICAL RATE 18 resp/min; MODE A/C VC+; PEEP 10 CM/H20; SITE ALINE; TIDAL VOLUME 500 ML; TOTAL RESP RATE 19 resp/min
[2016-11-26 05:29] LABS: EOSINOPHIL (%) 0 % (0-5); HEMATOCRIT 29.1 % (38.0-50.0); IMMATURE GRANULOCYTE (%) 0.2 % (0.0-0.7); INSTRUMENT ABS NEUTROPHIL CT 8.2 K/uL; LYMPHOCYTE COUNT 0.5 K/uL (1.0-2.8); MCH 28.9 PG (29.0-34.0); MCHC 30.2 G/DL (30.0-36.0); MCV 95.4 FL (86-99); MONOCYTE (%) 6.5 % (3-12); MONOCYTE COUNT 0.6 K/uL (0-0.8); NEUTROPHIL (%) 88.4 % (45-76); NEUTROPHIL COUNT 8.2 K/uL (1.8-6.4); PLATELET COUNT 219 K/uL (156-360); RBC DIS.WIDTH-CV 15.8 % (11.8-14.6); RBC DIS.WIDTH-SD 54.9 % (39-53); WHITE BLOOD COUNT 9.3 K/uL (4.1-10.2)
[2016-11-26 05:38] LABS: RED BLOOD COUNT 3.05 M/uL (4.00-5.50)
[2016-11-26 05:57] LABS: ALKALINE PHOSPHATASE 58 IU/L (3-129); ANION GAP 4 MEQ/L (2-14); CHLORIDE 109 MEQ/L (99-109); GFR ESTIMATE (CALCULATED) > 59 mL/min/; GLUCOSE 139 mg/dL (70-99); POTASSIUM 4.7 MEQ/L (3.7-5.4); SAMPLE HEMOLYSIS CHECK 0; SAMPLE ICTERIC CHECK 0; SAMPLE LIPEMIA CHECK 0; SODIUM 146 MEQ/L (136-147); TOTAL BILIRUBIN 0.4 MG/DL (0.0-1.0); UREA NITROGEN (BUN) 36 mg/dL (9-23)
[2016-11-26 05:58] LABS: GFR ESTIMATE (CALCULATED) > 59 mL/min/
[2016-11-26 12:06] LABS: POINT-OF-CARE METER ID UU13113748
[2016-11-26 16:18] LABS: MCV 95.4 FL (86-99)
[2016-11-26 17:42] LABS: POINT-OF-CARE METER ID UU13113731
[2016-11-27] VITALS (9 sets, daily range): BP systolic 103–162; BP diastolic 44–80
[2016-11-27 01:48] LABS: POINT-OF-CARE METER ID UU13113803; POINT-OF-CARE USER ID 609231305
[2016-11-27 06:24] LABS: POINT-OF-CARE METER ID UU13113731
[2016-11-27 12:44] LABS: POINT-OF-CARE METER ID UU13113803
[2016-11-27 16:17] LABS: HEMATOCRIT 29.4 % (38.0-50.0); MCV 95.5 FL (86-99)
[2016-11-27 18:16] LABS: POINT-OF-CARE METER ID UU13113803
[2016-11-28] VITALS (9 sets, daily range): BP systolic 95–146; BP diastolic 50–87
[2016-11-28 01:54] LABS: POINT-OF-CARE METER ID UU13113748; POINT-OF-CARE USER ID ENVSME70
[2016-11-28 06:41] LABS: POINT-OF-CARE METER ID UU13113748; POINT-OF-CARE USER ID PHATLC
[2016-11-28 09:11] LABS: BASE EXCESS 11.9 mEq/L (-3 to +3); BICARBONATE 39.3 mEq/L (22-26); CARBOXY HGB 2.3 % (0-5); COMMENTS - BLOOD GASES C+; METHEMOGLOBIN 1.8 % (0-1.5); PCO2 68 mm Hg (35-45); SITE ALINE; pH 7.37 (7.35-7.45)
[2016-11-28 09:12] LABS: DEVICE 980 VENTILATOR; FI02 60 %; MECHANICAL RATE 18 resp/min; MODE AC/VC+; TIDAL VOLUME 500 ML; TOTAL RESP RATE 26 resp/min
[2016-11-28 09:13] LABS: PEEP 10 CM/H20; PO2 47 mm Hg (80-100)
[2016-11-28 09:48] LABS: INTER. NORMALIZED RATIO 1.1; PROTHROMBIN TIME 10.7 (9.2-11.2); PTT 25.1 (25-32)
[2016-11-28 09:50] LABS: EOSINOPHIL (%) 0.1 % (0-5); HEMATOCRIT 32.4 % (38.0-50.0); IMMATURE GRANULOCYTE (%) 0.8 % (0.0-0.7); IMMATURE GRANULOCYTE COUNT 0.1 K/uL; INSTRUMENT ABS NEUTROPHIL CT 12.5 K/uL; LYMPHOCYTE COUNT 0.7 K/uL (1.0-2.8); MCH 28.2 PG (29.0-34.0); MCHC 29.6 G/DL (30.0-36.0); MCV 95.3 FL (86-99); MEAN PLAT.VOLUME 10.8 uM^3 (9.0-12.4); MONOCYTE (%) 4.5 % (3-12); MONOCYTE COUNT 0.6 K/uL (0-0.8); NEUTROPHIL (%) 89.8 % (45-76); NEUTROPHIL COUNT 12.5 K/uL (1.8-6.4); PLATELET COUNT 283 K/uL (156-360); RBC DIS.WIDTH-CV 15.8 % (11.8-14.6); RBC DIS.WIDTH-SD 54.2 % (39-53); WHITE BLOOD COUNT 13.9 K/uL (4.1-10.2)
[2016-11-28 09:58] LABS: ANION GAP 6 MEQ/L (2-14); CHLORIDE 104 MEQ/L (99-109); GFR ESTIMATE (CALCULATED) > 59 mL/min/; GLUCOSE 140 mg/dL (70-99); MAGNESIUM 2.1 mg/dl (1.3-2.7); POTASSIUM 5.1 MEQ/L (3.7-5.4); SAMPLE HEMOLYSIS CHECK 0; SAMPLE ICTERIC CHECK 0; SAMPLE LIPEMIA CHECK 0; SODIUM 145 MEQ/L (136-147); UREA NITROGEN (BUN) 36 mg/dL (9-23)
[2016-11-28 12:19] LABS: POINT-OF-CARE METER ID UU13113748
[2016-11-28 17:02] LABS: HEMATOCRIT 28.4 % (38.0-50.0); MCV 96.3 FL (86-99)
[2016-11-28 18:17] LABS: POINT-OF-CARE METER ID UU14174217
[2016-11-29] VITALS (7 sets, daily range): BP systolic 87–117; BP diastolic 47–65
[2016-11-29 00:45] LABS: POINT-OF-CARE METER ID UU13113748
[2016-11-29 06:13] LABS: POINT-OF-CARE METER ID UU14174217; POINT-OF-CARE USER ID PHATLC
[2016-11-29 06:21] LABS: EOSINOPHIL (%) 1.8 % (0-5); EOSINOPHIL COUNT 0.2 K/uL (0-0.3); HEMATOCRIT 26.7 % (38.0-50.0); IMMATURE GRANULOCYTE (%) 0.4 % (0.0-0.7); INSTRUMENT ABS NEUTROPHIL CT 7.4 K/uL; LYMPHOCYTE COUNT 0.7 K/uL (1.0-2.8); MCHC 29.2 G/DL (30.0-36.0); MCV 95.7 FL (86-99); MONOCYTE (%) 6.7 % (3-12); MONOCYTE COUNT 0.6 K/uL (0-0.8); NEUTROPHIL COUNT 7.4 K/uL (1.8-6.4); RBC DIS.WIDTH-CV 15.9 % (11.8-14.6); RED BLOOD COUNT 2.79 M/uL (4.00-5.50); WHITE BLOOD COUNT 8.9 K/uL (4.1-10.2)
[2016-11-29 06:44] LABS: ANION GAP 4 MEQ/L (2-14); CHLORIDE 100 MEQ/L (99-109); GFR ESTIMATE (CALCULATED) > 59 mL/min/; GLUCOSE 122 mg/dL (70-99); MAGNESIUM 2.1 mg/dl (1.3-2.7); POTASSIUM 4.7 MEQ/L (3.7-5.4); SAMPLE HEMOLYSIS CHECK 0; SAMPLE ICTERIC CHECK 0; SAMPLE LIPEMIA CHECK 0; SODIUM 144 MEQ/L (136-147); UREA NITROGEN (BUN) 35 mg/dL (9-23)
[2016-11-29 06:56] LABS: MEAN PLAT.VOLUME 10.4 uM^3 (9.0-12.4)
[2016-11-29 06:57] LABS: PLAT.SUFFICIENCY ADEQUATE
[2016-11-29 06:58] LABS: PLATELET COUNT ND K/uL (156-360)
[2016-11-29 11:37] LABS: POINT-OF-CARE METER ID UU14174217
[2016-11-29 16:30] LABS: HEMATOCRIT 27.4 % (38.0-50.0); MCV 96.1 FL (86-99)
[2016-11-29 18:22] LABS: POINT-OF-CARE METER ID UU13113748
[2016-11-30] VITALS (8 sets, daily range): BP systolic 0–149; BP diastolic 0–79
[2016-11-30 00:51] LABS: POINT-OF-CARE METER ID UU13113748; POINT-OF-CARE USER ID PHATLC
[2016-11-30 06:36] LABS: POINT-OF-CARE METER ID UU14174217; POINT-OF-CARE USER ID PHATLC
[2016-11-30 06:42] LABS: HEMATOCRIT 28.9 % (38.0-50.0); MCH 28.1 PG (29.0-34.0); MCHC 29.4 G/DL (30.0-36.0); MCV 95.4 FL (86-99); MEAN PLAT.VOLUME 10.9 uM^3 (9.0-12.4); RBC DIS.WIDTH-CV 15.9 % (11.8-14.6); RBC DIS.WIDTH-SD 55.9 % (39-53); RED BLOOD COUNT 3.03 M/uL (4.00-5.50)
[2016-11-30 06:43] LABS: PLATELET COUNT 160 K/uL (156-360)
[2016-11-30 07:03] LABS: ANION GAP ND MEQ/L (2-14); CHLORIDE 98 MEQ/L (99-109); GFR ESTIMATE (CALCULATED) > 59 mL/min/; GLUCOSE 119 mg/dL (70-99); POTASSIUM 4.2 MEQ/L (3.7-5.4); SAMPLE HEMOLYSIS CHECK 0; SAMPLE ICTERIC CHECK 0; SAMPLE LIPEMIA CHECK 0; SODIUM 144 MEQ/L (136-147); UREA NITROGEN (BUN) 36 mg/dL (9-23)
[2016-11-30 07:04] LABS: CARBON DIOXIDE (BICARBONATE) > 40.0 MEQ/L (20-31)
[2016-11-30 07:53] LABS: ABS NEUTROPHIL COUNT 7.8; ATYPICAL LYMPHOCYTE 0.9 %; EOSINOPHIL ABS CT 0.1; EOSINOPHILS 0.9 % (0-5.0); INSTRUMENT ABS NEUTROPHIL CT 6.8 K/uL; LYMPHOCYTES 9.3 % (15.0-45.0); PLAT.SUFFICIENCY ADEQUATE
[2016-11-30 12:29] LABS: POINT-OF-CARE METER ID UU14174217
[2016-11-30 16:35] LABS: HEMATOCRIT 26.8 % (38.0-50.0); MCV 95.7 FL (86-99)
[2016-11-30 17:47] LABS: POINT-OF-CARE METER ID UU14174217
[2016-12-01] VITALS: BP 131/75
[2016-12-01 01:24] LABS: POINT-OF-CARE METER ID UU14174217
[2016-12-01 04:00] VITALS: BP 145/76
[2016-12-01 04:57] LABS: HEMATOCRIT 26.9 % (38.0-50.0); MCH 28.3 PG (29.0-34.0); MCHC 30.5 G/DL (30.0-36.0); MCV 92.8 FL (86-99); MEAN PLAT.VOLUME 10.4 uM^3 (9.0-12.4); PLATELET COUNT 143 K/uL (156-360); RBC DIS.WIDTH-SD 54.2 % (39-53)
[2016-12-01 05:11] LABS: CHLORIDE 99 mEq/L (99-109); POTASSIUM 3.8 mEq/L (3.7-5.4); SODIUM 143 mEq/L (136-147)
[2016-12-01 05:12] LABS: MAGNESIUM 1.8 mg/dL (1.3-2.7)
[2016-12-01 05:14] LABS: GLUCOSE 144 mg/dL (70-99)
[2016-12-01 05:15] LABS: ANION GAP 7 MEQ/L (2-14)
[2016-12-01 05:17] LABS: GFR ESTIMATE (CALCULATED) > 59 mL/min/
[2016-12-01 05:18] LABS: UREA NITROGEN (BUN) 37 mg/dL (9-23)
[2016-12-01 05:36] LABS: EOSINOPHIL (%) 2.4 % (0-5); EOSINOPHIL COUNT 0.3 K/uL (0-0.3); HEMATOLOGY COMMENT 1 SMEAR COMPATIBLE; IMMATURE GRANULOCYTE (%) 0.5 % (0.0-0.7); IMMATURE GRANULOCYTE COUNT 0.1 K/uL; INSTRUMENT ABS NEUTROPHIL CT 9.3 K/uL; LYMPHOCYTE COUNT 0.8 K/uL (1.0-2.8); MONOCYTE (%) 5.4 % (3-12); MONOCYTE COUNT 0.6 K/uL (0-0.8); NEUTROPHIL (%) 84.9 % (45-76); NEUTROPHIL COUNT 9.3 K/uL (1.8-6.4)
[2016-12-01 08:30] VITALS: BP 98/52
[2016-12-01 10:25] LABS: CARBOXY HGB 2.7 % (0-5); METHEMOGLOBIN 1.7 % (0-1.5); PCO2 > 132 mm Hg (35-45); PO2 109 mm Hg (80-100); SITE LT RADIAL ALINE
[2016-12-01 10:26] LABS: COMMENTS - BLOOD GASES C+; DEVICE 980 VENTILATOR; FI02 100 %; MECHANICAL RATE 26 resp/min; MODE AC/VC+; PEEP 18 CM/H20; TIDAL VOLUME 375 ML; TOTAL RESP RATE 31 resp/min; pH 7.12 (7.35-7.45)
[2016-12-01 10:30] VITALS: BP 78/50
[2016-12-01 10:41] LABS: INTER. NORMALIZED RATIO 1.2; PTT 29.5 (25-32)
[2016-12-01 11:30] VITALS: BP 78/50
[2016-12-01 11:32] LABS: HEMATOCRIT 33.6 % (38.0-50.0)
[2016-12-01 11:37] LABS: MCV 97.7 FL (86-99)
[2016-12-01 11:48] LABS: POINT-OF-CARE METER ID UU14174217
[2016-12-01 12:00] VITALS: BP 92/56
[2016-12-01 12:20] LABS: BASE EXCESS 10.7 mEq/L (-3 to +3); BICARBONATE 42.2 mEq/L (22-26); METHEMOGLOBIN 1.8 % (0-1.5); PCO2 127 mm Hg (35-45); PO2 104 mm Hg (80-100)
[2016-12-01 12:21] LABS: COMMENTS - BLOOD GASES C+; DEVICE 980 VENTILATOR; FI02 80 %; INSPIRATION TIME 0.8 seconds; MECHANICAL RATE 20 resp/min; MODE AC/VC+; PEEP 14 CM/H20; SITE LT RADIAL ALINE; TIDAL VOLUME 470 ML; TOTAL RESP RATE 27 resp/min; pH 7.13 (7.35-7.45)
== END 2016-12-01 16:00 | DRG 981 ==
LOC: EME → EDBD 23:50 → EME 23:50 → EDOF 11-03 03:12 → 4WEST 11-03 03:12 → 4EAST 11-09 13:15 → 4WEST 11-10 00:16
PROVIDERS: Emergency Medicine; Family Medicine Sports Medicine; Internal Medicine Cardiovascular Disease; Internal Medicine Critical Care Medicine; Internal Medicine Nephrology; Internal Medicine Pulmonary Disease; Obstetrics & Gynecology; Psychiatry & Neurology Neurology; Specialist
PROC: 5A09357 Assistance with Respiratory Ventilation, Less than 24 Consecutive Hours, Continuous Positive Airway Pressure (ICD-10-PCS; principal; 2016-11-03)
PROC: 02HV33Z Insertion of Infusion Device into Superior Vena Cava, Percutaneous Approach (ICD-10-PCS; 2016-11-04)
PROC: 5A1955Z Respiratory Ventilation, Greater than 96 Consecutive Hours (ICD-10-PCS; 2016-11-04)
PROC: 0BH18EZ Insertion of Endotracheal Airway into Trachea, Via Natural or Artificial Opening Endoscopic (ICD-10-PCS; 2016-11-04)
PROC: B2111ZZ Fluoroscopy of Multiple Coronary Arteries using Low Osmolar Contrast (ICD-10-PCS; 2016-11-05)
PROC: 02703DZ Dilation of Coronary Artery, One Artery with Intraluminal Device, Percutaneous Approach (ICD-10-PCS; 2016-11-05)
PROC: 30233N1 Transfusion of Nonautologous Red Blood Cells into Peripheral Vein, Percutaneous Approach (ICD-10-PCS; 2016-11-11)
DX: J96.01 Acute respiratory failure with hypoxia (principal); I21.4 Non-ST elevation (NSTEMI) myocardial infarction; J18.9 Pneumonia, unspecified organism; F17.200 Nicotine dependence, unspecified, uncomplicated; E78.5 Hyperlipidemia, unspecified; J44.1 Chronic obstructive pulmonary disease with (acute) exacerbation; I50.41 Acute combined systolic (congestive) and diastolic (congestive) heart failure; I24.8 Other forms of acute ischemic heart disease; E11.65 Type 2 diabetes mellitus with hyperglycemia; I11.0 Hypertensive heart disease with heart failure; E87.6 Hypokalemia; Z86.73 Personal history of transient ischemic attack (TIA), and cerebral infarction without residual deficits; F31.9 Bipolar disorder, unspecified; I25.2 Old myocardial infarction; I48.91 Unspecified atrial fibrillation; Z88.0 Allergy status to penicillin; J80 Acute respiratory distress syndrome; F25.9 Schizoaffective disorder, unspecified; E87.2 Acidosis; E87.0 Hyperosmolality and hypernatremia; D62 Acute posthemorrhagic anemia; I42.9 Cardiomyopathy, unspecified; R57.0 Cardiogenic shock; R65.21 Severe sepsis with septic shock; Z51.5 Encounter for palliative care; J96.02 Acute respiratory failure with hypercapnia; Z66 Do not resuscitate; I44.4 Left anterior fascicular block; R04.89 Hemorrhage from other sites in respiratory passages; J44.0 Chronic obstructive pulmonary disease with (acute) lower respiratory infection; F01.50 Vascular dementia, unspecified severity, without behavioral disturbance, psychotic disturbance, mood disturbance, and anxiety; Z99.3 Dependence on wheelchair; Z22.322 Carrier or suspected carrier of Methicillin resistant Staphylococcus aureus
CPT/HCPCS: 31500; 36600; 36620; 71010; 71275; 80048; 80048 91; 80053; 80076; 80200; 80202; 81003; 82330; 82550; 82550 91; 82565; 82570; 82803; 82948; 83605; 83690; 83735; 83880; 84100; 84300; 84478; 84484; 84540; 85014; 85018; 85025; 85025 91; 85027; 85347; 85610; 85730; 86870; 86900; 86901; 86905; 86920; 87040; 87070; 87077; 87086; 87147; 87186; 87205; 87641; 92526 GN; 92610 GN; 93005; 93306; 94002; 94003; 94010; 94640; 94640 76; 94667; 94668; 94760; 94799; 97530 GO; 97530 GP; 99202; 99281; 99285; C1725; C1769; C1874; C1887; C9113; J0153; J0330; J0610; J0692; J0696; J1100; J1120; J1250; J1630; J1644; J1650; J1720; J1815; J1940; J1956; J2060; J2250; J2270; J2704; J2765; J2920; J2930; J3010; J3246; J3260; J3370; J3420; J3475; J3480; J3486; J7030; J7050; J7070; J7120; J7608; J7644; P9016; P9045; S0028